=== PATIENT | male | born 1945 | race Caucasian/White ===

== ENCOUNTER 2017-12-03 18:22 | Inpatient (IN) | payer MEDICARE, MEDICAID ==
[~2017-12-03] VITALS: Ht 177.8 cm; Wt 74.5 kg
[2017-12-03] MEDS ORDERED: METHYLPREDNISOLONE SOD SUCC 125 MG/2 ML VIAL IV STA (18:37)
[2017-12-03] MEDS ORDERED: ALBUTEROL (0.083%) 2.5MG/3ML NEB HHN ONE (19:15)
[2017-12-03 19:16] LABS: BG BASE EXCESS -10.2 mmol/L (-2.0-2.0); BG BILEVEL POS AIRWAY PRESSURE 20/5; BG CARBOXYHEMOGLOBIN 0.8 % (0.5-1.5); BG DEOXYHEMOGLOBIN 0.2 % (0.0-5.0); BG FRACTION INSPIRED OXYGEN 100; BG HCO3 ACT 19.5 mmol/L (22.0-26.0); BG METHEMOGLOBIN 0.5 % (0.0-1.5); BG OXYGEN SATURATION 99.8 % (92.0-98.5); BG OXYHEMOGLOBIN 98.5 % (94.0-97.0); BG PH 7.129 (7.350-7.450); BG PO2 359.6 mmHg (75.0-100.0); BG SAMPLE SITE RIGHT RADIAL; BG TOTAL HEMOGLOBIN 13.1 g/dL (12.0-18.0); BG VENT MODE MASK - BIPAP; BG VENT RATE 20 set
[2017-12-03] MEDS ORDERED: NITROGLYCERIN 0.4MG TABLET SL SL ONE (19:30)
[2017-12-03] MEDS ORDERED: LORAZEPAM 1MG TABLET PO ONE (19:30)
[2017-12-03 19:39] LABS: BASOPHILS % 0.9 % (0.0-2.0); EOSINOPHILS % 4.7 % (0.0-5.0); HEMATOCRIT. 39.2 % (42.0-52.0); HEMOGLOBIN. 12.4 g/dL (14.0-18.0); LYMPHOCYTES % 50.3 % (20.0-50.0); MEAN CORPUSCULAR HEMOGLOBIN 28.2 pg (28.0-32.0); MEAN CORPUSCULAR VOLUME 88.9 fL (80.0-94.0); MONOCYTES % 7.6 % (2.0-8.0); NEUTROPHILS % 36.5 % (40.0-76.0); PLATELET 327 x1000/uL (130-400); RED BLOOD CELL COUNT 4.41 mill/uL (4.7-6.1); RED CELL DISTRIBUTION WIDTH 15.6 % (11.6-14.6)
[2017-12-03] MEDS ORDERED: FUROSEMIDE 40MG/4ML VIAL IVP ONE (19:45)
[2017-12-03] MEDS ORDERED: NITROGLYCERIN 0.1MG/HR PATCH TOP ONE (19:45)
[2017-12-03 19:46] LABS: CHLORIDE 104 mEq/L (98-107)
[2017-12-03 19:47] LABS: INR 1.1; PROTHROMBIN TIME 10.9 sec (9.1-11.1)
[2017-12-03] MEDS ORDERED: VANCOMYCIN 1 G PREMIX 200 ML IV ONE (20:15)
[2017-12-03] MEDS ORDERED: LEVOFLOXACIN 750MG PREMIX 150 ML IV ONE (20:15)
[2017-12-03] MEDS ORDERED: ASPIRIN 81MG TABLET PO ONE (20:45)
[2017-12-03 22:09] VITALS: BP 126/71
[2017-12-03 22:18] VITALS: BP 126/71
[2017-12-03] MEDS ORDERED: DOCU100T PO (23:28)
[2017-12-03] MEDS ORDERED: ACET-2178 PO (23:28)
[2017-12-03] MEDS ORDERED: METO-539 PO (23:28)
[2017-12-03] MEDS ORDERED: ONDA4TAB5 PO (23:28)
[2017-12-03] MEDS ORDERED: ATOR40TA70 MT (23:28)
[2017-12-03] MEDS ORDERED: INSU100I28 SQ (23:28)
[2017-12-03] MEDS ORDERED: ASPI-1159 PO (23:28)
[2017-12-03] MEDS ORDERED: FAMO-135 PO (23:28)
[2017-12-03] MEDS ORDERED: OXYC-100 PO (23:28)
[2017-12-04] VITALS (12 sets, daily range): BP systolic 91–114; BP diastolic 60–71
[2017-12-04] MEDS ORDERED: DEXTROSE 50% WATER 50ML SYRINGE IV PRN
[2017-12-04] MEDS ORDERED: HYDROCODONE/ACETAMINOPHEN 10/325MG TABLET PO PRN
[2017-12-04] MEDS ORDERED: ONDANSETRON HCL 4MG TABLET PO PRN
[2017-12-04] MEDS: BLOOD SUGAR DIAGNOSTIC STRIP TEST SCH ×4 (06:26→21:32)
[2017-12-04 07:03] LABS: HEMATOCRIT 32.6 % (42.0-52.0); HEMOGLOBIN 10.9 g/dL (14.0-18.0); MEAN CORPUSCULAR HEMOGLOBIN 28.2 pg (28.0-32.0); MEAN CORPUSCULAR VOLUME 84.6 fL (80.0-94.0); PLATELET 190 x1000/uL (130-400); RED BLOOD CELL COUNT 3.85 mill/uL (4.7-6.1); RED CELL DISTRIBUTION WIDTH 15.2 % (11.6-14.6)
[2017-12-04 07:41] LABS: CHLORIDE 106 mEq/L (98-107)
[2017-12-04] MEDS: INSULIN LISPRO 100 UNITS/ML SUBCUT SCH ×4 (08:20→21:00)
[2017-12-04] MEDS: FUROSEMIDE 40MG/4ML VIAL IVP SCH ×2 (08:20→21:42)
[2017-12-04] MEDS: SPIRONOLACTONE 25MG TABLET PO SCH (08:21)
[2017-12-04] MEDS: ENOXAPARIN 40MG/0.4ML SYR SUBCUT SCH (08:21)
[2017-12-04] MEDS: DOCUSATE SODIUM 100MG CAPSULE PO SCH ×2 (08:21→16:18)
[2017-12-04] MEDS: FAMOTIDINE 20MG TABLET PO SCH (08:21)
[2017-12-04] MEDS: ASPIRIN 81MG TABLET PO SCH (08:32)
[2017-12-04] MEDS: LISINOPRIL 5MG TABLET PO SCH ×2 (09:00→21:00)
[2017-12-04] MEDS: CARVEDILOL 3.125 MG TABLET PO SCH ×2 (09:00→21:00)
[2017-12-04] MEDS: IPRATROPIUM/ALBUTEROL 0.5-3(2.5)MG/3ML NEB HHN PRN ×3 (10:15→21:16)
[2017-12-04] MEDS: LEVOFLOXACIN 750MG PREMIX 150 ML IV SCH (10:25)
[2017-12-04] MEDS: LEVOTHYROXINE SODIUM 50MCG TABLET PO SCH (11:07)
[2017-12-04 12:02] LABS: BG BASE EXCESS -1.7 mmol/L (-2.0-2.0); BG CARBOXYHEMOGLOBIN 0.4 % (0.5-1.5); BG DEOXYHEMOGLOBIN 7.7 % (0.0-5.0); BG FRACTION INSPIRED OXYGEN 36; BG HCO3 ACT 21.1 mmol/L (22.0-26.0); BG METHEMOGLOBIN 0.3 % (0.0-1.5); BG OXYGEN SATURATION 92.2 % (92.0-98.5); BG OXYHEMOGLOBIN 91.6 % (94.0-97.0); BG PCO2 29.7 mmHg (35.0-45.0); BG PH 7.469 (7.350-7.450); BG PO2 64.1 mmHg (75.0-100.0); BG SAMPLE SITE RIGHT BRACHIAL; BG TOTAL HEMOGLOBIN 11.3 g/dL (12.0-18.0); BG VENT MODE NASAL CANNULA
[2017-12-04] MEDS: ATORVASTATIN CALCIUM 40MG TABLET PO SCH (21:31)
[2017-12-04] MEDS: INSULIN GLARGINE UD 100 UNITS/ML SYR SUBCUT SCH (21:34)
[2017-12-05] VITALS (12 sets, daily range): BP systolic 105–133; BP diastolic 55–90
[2017-12-05 06:34] LABS: BASOPHILS % 0.4 % (0.0-2.0); EOSINOPHILS % 0.5 % (0.0-5.0); HEMATOCRIT. 30.7 % (42.0-52.0); HEMOGLOBIN. 10.4 g/dL (14.0-18.0); LYMPHOCYTES % 14.8 % (20.0-50.0); MEAN CORPUSCULAR HEMOGLOBIN 28.9 pg (28.0-32.0); MEAN CORPUSCULAR VOLUME 85.2 fL (80.0-94.0); MEAN PLATELET VOLUME 8.6 fl (7.4-10.4); MONOCYTES % 8.7 % (2.0-8.0); NEUTROPHILS % 75.6 % (40.0-76.0); PLATELET 178 x1000/uL (130-400); RED CELL DISTRIBUTION WIDTH 15.2 % (11.6-14.6)
[2017-12-05] MEDS: BLOOD SUGAR DIAGNOSTIC STRIP TEST SCH ×4 (06:38→21:34)
[2017-12-05] MEDS: LEVOTHYROXINE SODIUM 50MCG TABLET PO SCH (06:38)
[2017-12-05 06:47] LABS: CHLORIDE 105 mEq/L (98-107)
[2017-12-05] MEDS: INSULIN LISPRO 100 UNITS/ML SUBCUT SCH ×4 (07:20→21:29)
[2017-12-05] MEDS: ENOXAPARIN 40MG/0.4ML SYR SUBCUT SCH (08:06)
[2017-12-05] MEDS: DOCUSATE SODIUM 100MG CAPSULE PO SCH ×2 (08:06→16:23)
[2017-12-05] MEDS: FUROSEMIDE 40MG/4ML VIAL IVP SCH ×2 (08:06→21:25)
[2017-12-05] MEDS: ASPIRIN 81MG TABLET PO SCH (08:06)
[2017-12-05] MEDS: SPIRONOLACTONE 25MG TABLET PO SCH (08:06)
[2017-12-05] MEDS: FAMOTIDINE 20MG TABLET PO SCH (08:07)
[2017-12-05] MEDS: CARVEDILOL 3.125 MG TABLET PO SCH ×2 (08:07→21:26)
[2017-12-05] MEDS: IPRATROPIUM/ALBUTEROL 0.5-3(2.5)MG/3ML NEB HHN PRN ×3 (08:30→15:54)
[2017-12-05] MEDS: LISINOPRIL 5MG TABLET PO SCH ×2 (09:44→21:28)
[2017-12-05] MEDS: POTASSIUM CHLORIDE 20MEQ TABLET SR PO SCH (10:23)
[2017-12-05] MEDS: LEVOFLOXACIN 750MG PREMIX 150 ML IV SCH (10:24)
[2017-12-05] MEDS: ATORVASTATIN CALCIUM 40MG TABLET PO SCH (21:25)
[2017-12-05] MEDS: INSULIN GLARGINE UD 100 UNITS/ML SYR SUBCUT SCH (21:29)
[2017-12-05] MEDS ORDERED: ZOLPIDEM TARTRATE 5MG TABLET PO PRN (23:00)
[2017-12-06] VITALS (10 sets, daily range): BP systolic 94–125; BP diastolic 66–92
[2017-12-06] MEDS: LEVOTHYROXINE SODIUM 50MCG TABLET PO SCH (06:23)
[2017-12-06] MEDS: BLOOD SUGAR DIAGNOSTIC STRIP TEST SCH ×3 (06:23→15:57)
[2017-12-06 06:59] LABS: BASOPHILS % 1.1 % (0.0-2.0); EOSINOPHILS % 4.3 % (0.0-5.0); HEMATOCRIT. 35.5 % (42.0-52.0); HEMOGLOBIN. 11.8 g/dL (14.0-18.0); LYMPHOCYTES % 15.6 % (20.0-50.0); MEAN CORPUSCULAR HEMOGLOBIN 28.2 pg (28.0-32.0); MEAN CORPUSCULAR VOLUME 85.2 fL (80.0-94.0); MEAN PLATELET VOLUME 8.6 fl (7.4-10.4); MONOCYTES % 7.9 % (2.0-8.0); NEUTROPHILS % 71.1 % (40.0-76.0); PLATELET 196 x1000/uL (130-400); RED BLOOD CELL COUNT 4.17 mill/uL (4.7-6.1); RED CELL DISTRIBUTION WIDTH 15.5 % (11.6-14.6)
[2017-12-06] MEDS: INSULIN LISPRO 100 UNITS/ML SUBCUT SCH ×2 (07:20→11:28)
[2017-12-06 07:51] LABS: CHLORIDE 103 mEq/L (98-107)
[2017-12-06] MEDS: POTASSIUM CHLORIDE 20MEQ TABLET SR PO SCH (08:26)
[2017-12-06] MEDS: ENOXAPARIN 40MG/0.4ML SYR SUBCUT SCH (08:26)
[2017-12-06] MEDS: ASPIRIN 81MG TABLET PO SCH (08:26)
[2017-12-06] MEDS: DOCUSATE SODIUM 100MG CAPSULE PO SCH ×2 (08:26→16:01)
[2017-12-06] MEDS: CARVEDILOL 3.125 MG TABLET PO SCH (08:26)
[2017-12-06] MEDS: FUROSEMIDE 40MG/4ML VIAL IVP SCH (08:26)
[2017-12-06] MEDS: FAMOTIDINE 20MG TABLET PO SCH (08:27)
[2017-12-06] MEDS: SPIRONOLACTONE 25MG TABLET PO SCH (08:27)
[2017-12-06] MEDS: LEVOFLOXACIN 750MG PREMIX 150 ML IV SCH (10:19)
[2017-12-06] MEDS: LISINOPRIL 5MG TABLET PO SCH (10:19)
[2017-12-06] MEDS ORDERED: CLOPIDOGREL 75MG TABLET PO SCH (10:30)
== END 2017-12-06 17:20 | DRG 291 ==
LOC: ER 18:22 → 3WST 20:15 → EDBEDREQTM 20:18 → EDBEDREQSVC 20:18 → EDBEDREQ 20:18 → ENRESERV 21:02
PROVIDERS: ADMIT Internal Medicine; ATTEND Internal Medicine
PROC: 5A09357 Assistance with Respiratory Ventilation, Less than 24 Consecutive Hours, Continuous Positive Airway Pressure (ICD-10-PCS; principal; 2017-12-03)
PROC: 5A09357 Assistance with Respiratory Ventilation, Less than 24 Consecutive Hours, Continuous Positive Airway Pressure (ICD-10-PCS; 2017-12-04)
PROC: 5A09357 Assistance with Respiratory Ventilation, Less than 24 Consecutive Hours, Continuous Positive Airway Pressure (ICD-10-PCS; 2017-12-05)
DX: I11.0 Hypertensive heart disease with heart failure (principal); J96.00 Acute respiratory failure, unspecified whether with hypoxia or hypercapnia; J18.9 Pneumonia, unspecified organism; E87.2 Acidosis; R65.10 Systemic inflammatory response syndrome (SIRS) of non-infectious origin without acute organ dysfunction; I50.23 Acute on chronic systolic (congestive) heart failure; I25.10 Atherosclerotic heart disease of native coronary artery without angina pectoris; B19.20 Unspecified viral hepatitis C without hepatic coma; D64.9 Anemia, unspecified; I25.5 Ischemic cardiomyopathy; E03.9 Hypothyroidism, unspecified; E11.9 Type 2 diabetes mellitus without complications; E78.5 Hyperlipidemia, unspecified; F17.200 Nicotine dependence, unspecified, uncomplicated; Z95.1 Presence of aortocoronary bypass graft; Z88.0 Allergy status to penicillin; I25.2 Old myocardial infarction
CPT/HCPCS: 36415; 36600; 71045; 80048; 80053; 82375; 82805; 82962; 83735; 83880; 84484; 85025; 85027; 85610; 87040; 93005; 93306; 94640; 94660; 96361; 96374; 96375; 97162; 99291; J1650; J1815; J1940; J1956; J2930; J3370; J7050; J7611; J7620

== ENCOUNTER 2018-05-04 11:46 | Inpatient (IN) | payer MEDICARE, MEDICAID ==
[~2018-05-04] VITALS: Ht 172.7 cm; Wt 81.2 kg
[~2018-05-04 11:46] MED LIST: ACET-2178 PO; ASPI-1159 PO; ATOR40TA70 MT; DOCU100T PO; FAMO-135 PO; INSU100I28 SQ; METO-539 PO; ONDA4TAB5 PO; OXYC-100 PO
[2018-05-04 13:08] LABS: HEMOGLOBIN. 12.5 g/dL (14.0-18.0); LYMPHOCYTES % 15.9 % (20.0-50.0); MEAN CORPUSCULAR HEMOGLOBIN 28.3 pg (28.0-32.0); MEAN CORPUSCULAR VOLUME 85.8 fL (80.0-94.0); MONOCYTES % 10.3 % (2.0-8.0); PLATELET 177 x1000/uL (130-400); RED BLOOD CELL COUNT 4.43 mill/uL (4.7-6.1)
[2018-05-04 13:09] LABS: BASOPHILS % 1.1 % (0.0-2.0); EOSINOPHILS % 3.7 % (0.0-5.0)
[2018-05-04 13:12] LABS: CHLORIDE 106 mEq/L (98-107)
[2018-05-04 13:19] LABS: ETHANOL BLOOD < 10 mg/dL
[2018-05-04 14:27] LABS: *BARBITURATES SCREEN URINE NEGATIVE (NEGATIVE)
[2018-05-04 14:28] LABS: *AMPHETAMINES SCREEN URINE NEGATIVE (NEGATIVE); *BENZODIAZEPINES SCREEN URINE NEGATIVE (NEGATIVE); *COCAINE SCREEN URINE NEGATIVE (NEGATIVE); METHADONE URINE SCREEN NEGATIVE (NEGATIVE); OPIATES URINE SCREEN NEGATIVE (NEGATIVE)
[2018-05-04 14:29] LABS: CANNABINOID URINE SCREEN NEGATIVE (NEGATIVE); PHENCYCLIDINE URINE SCREEN NEGATIVE (NEGATIVE)
[2018-05-04] MEDS ORDERED: FUROSEMIDE 40MG/4ML VIAL IVP ONE (16:00)
[2018-05-04 18:45] VITALS: BP 123/96
[2018-05-04 18:50] VITALS: BP 123/96
[2018-05-04 19:54] VITALS: BP 127/88
[2018-05-04] MEDS ORDERED: DEXTROSE 50% WATER 50ML SYRINGE IV PRN (22:30)
[2018-05-04] MEDS ORDERED: METOPROLOL TARTRATE 25MG TABLET PO SCH (22:45)
[2018-05-04] MEDS ORDERED: IPRATROPIUM/ALBUTEROL 0.5-3(2.5)MG/3ML NEB HHN PRN (22:45)
[2018-05-04] MEDS ORDERED: ACETAMINOPHEN 325MG TABLET PO PRN (22:45)
[2018-05-04 23:52] VITALS: BP 122/68
[2018-05-05] MEDS: IPRATROPIUM/ALBUTEROL 0.5-3(2.5)MG/3ML NEB HHN SCH ×5 (00:35→21:57)
[2018-05-05 03:51] VITALS: BP 96/45
[2018-05-05 04:10] VITALS: BP 102/68
[2018-05-05] MEDS ORDERED: PNEUMOCOCCAL 23-VAL P-SAC VAC 0.5 ML IM ONE (06:00)
[2018-05-05] MEDS: BLOOD SUGAR DIAGNOSTIC STRIP TEST SCH ×4 (06:00→20:27)
[2018-05-05] MEDS ORDERED: INFLUENZA VIRUS VACCINE(AFLURIA) 0.5ML SYR IM ONE (06:00)
[2018-05-05 07:07] LABS: BASOPHILS % 1.1 % (0.0-2.0); EOSINOPHILS % 6.2 % (0.0-5.0); HEMATOCRIT. 35.1 % (42.0-52.0); HEMOGLOBIN. 11.5 g/dL (14.0-18.0); LYMPHOCYTES % 23.3 % (20.0-50.0); MEAN CORPUSCULAR VOLUME 85.7 fL (80.0-94.0); MEAN PLATELET VOLUME 8.8 fl (7.4-10.4); MONOCYTES % 11.5 % (2.0-8.0); NEUTROPHILS % 57.9 % (40.0-76.0); PLATELET 164 x1000/uL (130-400); RED CELL DISTRIBUTION WIDTH 14.7 % (11.6-14.6)
[2018-05-05 07:21] LABS: CHLORIDE 107 mEq/L (98-107)
[2018-05-05 07:33] LABS: LDL CHOLESTEROL 89 mg/dL (5-100)
[2018-05-05 07:34] LABS: CREATINE KINASE 60 IU/L (39-308); HDL CHOLESTEROL 27 mg/dL (40-59)
[2018-05-05 07:42] LABS: CREATINE KINASE MB FRACTION 3.2 ng/mL (0.5-3.6)
[2018-05-05 08:00] VITALS: BP 114/76
[2018-05-05] MEDS: INSULIN LISPRO 100 UNITS/ML SUBCUT SCH ×4 (08:10→20:36)
[2018-05-05] MEDS: POTASSIUM CHLORIDE 10MEQ TABLET SR PO SCH (08:31)
[2018-05-05] MEDS: LISINOPRIL 20MG TABLET PO SCH (08:31)
[2018-05-05] MEDS: ENOXAPARIN 40MG/0.4ML SYR SUBCUT SCH (08:33)
[2018-05-05] MEDS ORDERED: METOPROLOL TARTRATE 25MG TABLET PO SCH (09:00)
[2018-05-05] MEDS: FUROSEMIDE 40MG/4ML VIAL IVP SCH (09:29)
[2018-05-05] MEDS: METHYLPREDNISOLONE SOD SUCC 40 MG/ML VIAL IV SCH ×2 (09:31→18:13)
[2018-05-05 12:00] VITALS: BP 110/68
[2018-05-05] MEDS: ASPIRIN 81MG EC TABLET PO SCH (13:12)
[2018-05-05] MEDS: CARVEDILOL 3.125 MG TABLET PO SCH ×2 (13:13→20:28)
[2018-05-05 16:00] VITALS: BP 106/68
[2018-05-05 19:27] LABS: CREATINE KINASE MB FRACTION 2.4 ng/mL (0.5-3.6)
[2018-05-05 20:00] VITALS: BP 110/84
[2018-05-05] MEDS: ATORVASTATIN CALCIUM 20MG TABLET PO SCH (20:35)
[2018-05-06] VITALS: BP 108/80
[2018-05-06 00:48] LABS: CREATINE KINASE MB FRACTION 1.8 ng/mL (0.5-3.6)
[2018-05-06] MEDS: IPRATROPIUM/ALBUTEROL 0.5-3(2.5)MG/3ML NEB HHN SCH ×6 (01:14→21:14)
[2018-05-06] MEDS: METHYLPREDNISOLONE SOD SUCC 40 MG/ML VIAL IV SCH ×3 (01:49→17:38)
[2018-05-06 04:00] VITALS: BP 118/78
[2018-05-06] MEDS: BLOOD SUGAR DIAGNOSTIC STRIP TEST SCH ×4 (06:52→21:37)
[2018-05-06 06:56] LABS: HEMATOCRIT. 34.2 % (42.0-52.0); HEMOGLOBIN. 11.4 g/dL (14.0-18.0); MEAN CORPUSCULAR HEMOGLOBIN 28.4 pg (28.0-32.0); MEAN CORPUSCULAR VOLUME 85.4 fL (80.0-94.0); MEAN PLATELET VOLUME 8.9 fl (7.4-10.4); PLATELET 155 x1000/uL (130-400); RED BLOOD CELL COUNT 4.01 mill/uL (4.7-6.1); RED CELL DISTRIBUTION WIDTH 14.6 % (11.6-14.6)
[2018-05-06 07:03] LABS: CHLORIDE 105 mEq/L (98-107)
[2018-05-06 08:00] VITALS: BP 109/68
[2018-05-06] MEDS: LISINOPRIL 20MG TABLET PO SCH (09:00)
[2018-05-06] MEDS: CARVEDILOL 3.125 MG TABLET PO SCH ×2 (09:00→21:00)
[2018-05-06] MEDS: POTASSIUM CHLORIDE 10MEQ TABLET SR PO SCH (09:38)
[2018-05-06] MEDS: ASPIRIN 81MG EC TABLET PO SCH (09:38)
[2018-05-06] MEDS: FUROSEMIDE 40MG/4ML VIAL IVP SCH (09:38)
[2018-05-06] MEDS: ENOXAPARIN 40MG/0.4ML SYR SUBCUT SCH (09:39)
[2018-05-06] MEDS: INSULIN LISPRO 100 UNITS/ML SUBCUT SCH ×4 (09:40→21:00)
[2018-05-06 12:00] VITALS: BP 98/66
[2018-05-06 14:02] LABS: PLATELET ESTIMATE NORMAL
[2018-05-06 16:00] VITALS: BP 104/57
[2018-05-06 20:34] VITALS: BP 107/64
[2018-05-06] MEDS: ATORVASTATIN CALCIUM 20MG TABLET PO SCH (22:16)
[2018-05-07] VITALS: BP 109/64
[2018-05-07] MEDS: IPRATROPIUM/ALBUTEROL 0.5-3(2.5)MG/3ML NEB HHN SCH ×5 (00:41→14:43)
[2018-05-07] MEDS: METHYLPREDNISOLONE SOD SUCC 40 MG/ML VIAL IV SCH (01:27)
[2018-05-07 04:10] VITALS: BP 106/62
[2018-05-07] MEDS: BLOOD SUGAR DIAGNOSTIC STRIP TEST SCH ×3 (06:35→17:24)
[2018-05-07] MEDS: INSULIN LISPRO 100 UNITS/ML SUBCUT SCH ×3 (06:40→17:55)
[2018-05-07 07:04] LABS: HEMATOCRIT. 34.8 % (42.0-52.0); HEMOGLOBIN. 11.5 g/dL (14.0-18.0); MEAN CORPUSCULAR HEMOGLOBIN 28.1 pg (28.0-32.0); MEAN CORPUSCULAR VOLUME 85.4 fL (80.0-94.0); PLATELET 168 x1000/uL (130-400); RED BLOOD CELL COUNT 4.07 mill/uL (4.7-6.1); RED CELL DISTRIBUTION WIDTH 14.7 % (11.6-14.6)
[2018-05-07 07:40] LABS: CHLORIDE 104 mEq/L (98-107)
[2018-05-07 08:00] VITALS: BP 108/69
[2018-05-07] MEDS ORDERED: LACTULOSE 20G/30ML UDC PO NR (08:25)
[2018-05-07] MEDS ORDERED: REGADENOSON 0.4 MG/5 ML IV ONE ×2 (08:30→12:13)
[2018-05-07] MEDS: ENOXAPARIN 40MG/0.4ML SYR SUBCUT SCH (08:42)
[2018-05-07] MEDS: FUROSEMIDE 40MG/4ML VIAL IVP SCH (08:42)
[2018-05-07] MEDS: ASPIRIN 81MG EC TABLET PO SCH (09:00)
[2018-05-07] MEDS: CARVEDILOL 3.125 MG TABLET PO SCH (09:00)
[2018-05-07] MEDS: LISINOPRIL 20MG TABLET PO SCH (09:00)
[2018-05-07 12:04] LABS: PLATELET ESTIMATE NORMAL
[2018-05-07 13:17] VITALS: BP 104/62
[2018-05-07 16:00] VITALS: BP 99/45
[2018-05-07 16:58] VITALS: BP 99/45
== END 2018-05-07 18:43 | DRG 292 ==
LOC: ER 11:46 → ENRESERV 14:29 → 7WST 16:44 → EDBEDREQTM 16:52 → EDBEDREQ 16:52
PROVIDERS: ADMIT Internal Medicine Geriatric Medicine; ATTEND Internal Medicine Geriatric Medicine
DX: I11.0 Hypertensive heart disease with heart failure (principal); E46 Unspecified protein-calorie malnutrition; R07.89 Other chest pain; E11.9 Type 2 diabetes mellitus without complications; R74.8 Abnormal levels of other serum enzymes; I50.43 Acute on chronic combined systolic (congestive) and diastolic (congestive) heart failure; D64.9 Anemia, unspecified; E78.5 Hyperlipidemia, unspecified; F17.210 Nicotine dependence, cigarettes, uncomplicated; I25.10 Atherosclerotic heart disease of native coronary artery without angina pectoris; I25.5 Ischemic cardiomyopathy; I08.1 Rheumatic disorders of both mitral and tricuspid valves; Z60.2 Problems related to living alone; I27.20 Pulmonary hypertension, unspecified; K59.00 Constipation, unspecified; Z82.49 Family history of ischemic heart disease and other diseases of the circulatory system; Z91.14 Patient's other noncompliance with medication regimen; Z95.1 Presence of aortocoronary bypass graft; Z68.27 Body mass index [BMI] 27.0-27.9, adult; Z88.0 Allergy status to penicillin
CPT/HCPCS: 36415; 71045; 78452; 80048; 80061; 80305; 82550; 82553; 82962; 83036; 83735; 83880; 84443; 84484; 90686; 90732; 93005; 93017; 93306; 93970; 94640; 99285; A9500; G0482; J1650; J1815; J1940; J2785; J2920; J7620

== ENCOUNTER 2019-09-03 10:18 | Inpatient (IN) | payer MEDICARE, MEDICAID ==
[~2019-09-03] VITALS: Ht 177.8 cm; Wt 87.5 kg
[~2019-09-03 10:18] MED LIST changes: -ACET-2178 PO; -ASPI-1159 PO; +ASPI-1497 PO; +TOPUD PO
[2019-09-03 11:14] LABS: BASOPHILS % 0.7 % (0.0-2.0); EOSINOPHILS % 0.3 % (0.0-5.0); HEMATOCRIT. 39.6 % (42.0-52.0); HEMOGLOBIN. 13.5 g/dL (14.0-18.0); LYMPHOCYTES % 7.5 % (20.0-50.0); MEAN CORPUSCULAR HEMOGLOBIN 29.9 pg (28.0-32.0); MEAN CORPUSCULAR VOLUME 87.6 fL (80.0-94.0); MEAN PLATELET VOLUME 8.2 fl (7.4-10.4); MONOCYTES % 8.6 % (2.0-8.0); NEUTROPHILS % 82.9 % (40.0-76.0); PLATELET 192 x1000/uL (130-400); RED BLOOD CELL COUNT 4.52 mill/uL (4.7-6.1); RED CELL DISTRIBUTION WIDTH 15.3 % (11.6-14.6)
[2019-09-03 11:25] LABS: CHLORIDE 104 mEq/L (98-107)
[2019-09-03] MEDS ORDERED: ASPIRIN 325MG TABLET PO SCH (12:00)
[2019-09-03] MEDS ORDERED: ONDANSETRON HCL 4MG/2ML INJ IV PRN (16:45)
[2019-09-03] MEDS ORDERED: TRAZODONE HCL 50MG TABLET PO PRN (16:45)
[2019-09-03] MEDS: FUROSEMIDE 40MG/4ML VIAL IV SCH (17:48)
[2019-09-03] MEDS: ACETAMINOPHEN 325MG TABLET PO PRN (19:35)
[2019-09-03] MEDS ORDERED: TRAMADOL 50MG TABLET PO PRN (19:45)
[2019-09-03 20:00] VITALS: BP_SYST 87; BP_SYST 97; BP_DIAS 62
[2019-09-03] MEDS: HEPARIN 5000 UNITS/ML VIAL SUBCUT SCH (22:03)
[2019-09-04] VITALS: BP 101/70
[2019-09-04 04:00] VITALS: BP 126/88
[2019-09-04 06:48] LABS: CHLORIDE 105 mEq/L (98-107)
[2019-09-04 06:54] LABS: BASOPHILS % 1.1 % (0.0-2.0); EOSINOPHILS % 2.6 % (0.0-5.0); HEMATOCRIT. 38.7 % (42.0-52.0); LYMPHOCYTES % 15.8 % (20.0-50.0); MEAN CORPUSCULAR HEMOGLOBIN 29.2 pg (28.0-32.0); MEAN CORPUSCULAR VOLUME 87.1 fL (80.0-94.0); MEAN PLATELET VOLUME 8.4 fl (7.4-10.4); MONOCYTES % 10.7 % (2.0-8.0); NEUTROPHILS % 69.8 % (40.0-76.0); PLATELET 155 x1000/uL (130-400); RED BLOOD CELL COUNT 4.44 mill/uL (4.7-6.1); RED CELL DISTRIBUTION WIDTH 15.4 % (11.6-14.6)
[2019-09-04 08:00] VITALS: BP 116/75
[2019-09-04] MEDS: FUROSEMIDE 40MG/4ML VIAL IV SCH ×2 (09:18→17:19)
[2019-09-04] MEDS: ACETAMINOPHEN 325MG TABLET PO PRN (09:30)
[2019-09-04] MEDS: HEPARIN 5000 UNITS/ML VIAL SUBCUT SCH (10:03)
[2019-09-04 12:00] VITALS: BP 122/76
[2019-09-04] MEDS ORDERED: IPRATROPIUM/ALBUTEROL 0.5-3(2.5)MG/3ML NEB HHN PRN (13:15)
[2019-09-04] MEDS: ASPIRIN 81MG TABLET PO SCH (14:22)
[2019-09-04 16:00] VITALS: BP 111/83
[2019-09-04 16:33] LABS: *AMPHETAMINES SCREEN URINE NEGATIVE (NEGATIVE); *BARBITURATES SCREEN URINE NEGATIVE (NEGATIVE); *BENZODIAZEPINES SCREEN URINE NEGATIVE (NEGATIVE); *COCAINE SCREEN URINE NEGATIVE (NEGATIVE)
[2019-09-04 16:34] LABS: CANNABINOID URINE SCREEN NEGATIVE (NEGATIVE); METHADONE URINE SCREEN NEGATIVE (NEGATIVE); OPIATES URINE SCREEN NEGATIVE (NEGATIVE); PHENCYCLIDINE URINE SCREEN NEGATIVE (NEGATIVE)
[2019-09-04 17:13] LABS: HEPATITIS B SURFACE ANTIGEN NEGATIVE
[2019-09-04] MEDS: DILTIAZEM HCL 30MG TABLET PO SCH ×2 (17:19→21:00)
[2019-09-04 17:52] LABS: HEPATITIS A AB IGM NEGATIVE (NEGATIVE)
[2019-09-04 20:00] VITALS: BP 115/66
[2019-09-04] MEDS: ATORVASTATIN CALCIUM 40MG TABLET PO SCH (20:59)
[2019-09-04] MEDS: CARVEDILOL 3.125 MG TABLET PO SCH (20:59)
[2019-09-04] MEDS: IPRATROPIUM/ALBUTEROL 0.5-3(2.5)MG/3ML NEB HHN SCH (21:17)
[2019-09-05] VITALS: BP 126/72
[2019-09-05] MEDS: HEPARIN 5000 UNITS/ML VIAL SUBCUT SCH ×3 (00:20→22:07)
[2019-09-05] MEDS: IPRATROPIUM/ALBUTEROL 0.5-3(2.5)MG/3ML NEB HHN SCH ×4 (01:21→20:40)
[2019-09-05 04:00] VITALS: BP 118/66
[2019-09-05 05:28] LABS: CHLORIDE 102 mEq/L (98-107)
[2019-09-05] MEDS: DILTIAZEM HCL 30MG TABLET PO SCH (06:18)
[2019-09-05 06:57] LABS: EOSINOPHILS % 4.7 % (0.0-5.0); HEMATOCRIT. 36.5 % (42.0-52.0); HEMOGLOBIN. 12.3 g/dL (14.0-18.0); LYMPHOCYTES % 13.9 % (20.0-50.0); MEAN CORPUSCULAR HEMOGLOBIN 28.9 pg (28.0-32.0); MEAN CORPUSCULAR VOLUME 86.2 fL (80.0-94.0); MEAN PLATELET VOLUME 9.5 fl (7.4-10.4); MONOCYTES % 10.2 % (2.0-8.0); NEUTROPHILS % 70.2 % (40.0-76.0); PLATELET 135 x1000/uL (130-400); RED BLOOD CELL COUNT 4.24 mill/uL (4.7-6.1); RED CELL DISTRIBUTION WIDTH 15.3 % (11.6-14.6)
[2019-09-05 08:00] VITALS: BP 132/78
[2019-09-05] MEDS: LOSARTAN POTASSIUM 25 MG TABLET PO SCH (09:00)
[2019-09-05] MEDS: CARVEDILOL 3.125 MG TABLET PO SCH ×2 (09:00→22:07)
[2019-09-05] MEDS: FUROSEMIDE 40MG/4ML VIAL IV SCH ×2 (10:07→17:38)
[2019-09-05] MEDS: ASPIRIN 81MG TABLET PO SCH (10:08)
[2019-09-05] MEDS: POTASSIUM CHLORIDE 20MEQ TABLET SR PO SCH (10:11)
[2019-09-05 12:00] VITALS: BP 135/82
[2019-09-05] MEDS ORDERED: POTASSIUM CHLORIDE 20MEQ TABLET SR PO NR (12:15)
[2019-09-05] MEDS ORDERED: FUROSEMIDE 40MG/4ML VIAL IVP NR (13:45)
[2019-09-05 16:00] VITALS: BP 124/78
[2019-09-05] MEDS: ATORVASTATIN CALCIUM 40MG TABLET PO SCH (22:07)
[2019-09-06] VITALS: BP 111/51
[2019-09-06] MEDS: IPRATROPIUM/ALBUTEROL 0.5-3(2.5)MG/3ML NEB HHN SCH ×5 (00:43→20:50)
[2019-09-06 04:00] VITALS: BP 120/67
[2019-09-06 08:00] VITALS: BP 133/78
[2019-09-06 08:16] LABS: BASOPHILS % 1.1 % (0.0-2.0); EOSINOPHILS % 4.5 % (0.0-5.0); HEMATOCRIT. 35.6 % (42.0-52.0); HEMOGLOBIN. 11.9 g/dL (14.0-18.0); LYMPHOCYTES % 14.4 % (20.0-50.0); MEAN CORPUSCULAR HEMOGLOBIN 28.8 pg (28.0-32.0); MEAN CORPUSCULAR VOLUME 86.1 fL (80.0-94.0); MEAN PLATELET VOLUME 8.9 fl (7.4-10.4); MONOCYTES % 11.3 % (2.0-8.0); NEUTROPHILS % 68.7 % (40.0-76.0); PLATELET 144 x1000/uL (130-400); RED BLOOD CELL COUNT 4.13 mill/uL (4.7-6.1); RED CELL DISTRIBUTION WIDTH 15.1 % (11.6-14.6)
[2019-09-06 08:36] LABS: CHLORIDE 101 mEq/L (98-107)
[2019-09-06] MEDS ORDERED: POTASSIUM CHLORIDE 20MEQ TABLET SR PO NR (09:00)
[2019-09-06] MEDS: HEPARIN 5000 UNITS/ML VIAL SUBCUT SCH ×2 (09:45→21:50)
[2019-09-06] MEDS: FUROSEMIDE 40MG/4ML VIAL IV SCH ×2 (09:45→16:11)
[2019-09-06] MEDS: CARVEDILOL 3.125 MG TABLET PO SCH ×2 (09:46→21:00)
[2019-09-06] MEDS: ASPIRIN 81MG TABLET PO SCH (09:46)
[2019-09-06] MEDS: LOSARTAN POTASSIUM 25 MG TABLET PO SCH (09:46)
[2019-09-06] MEDS: POTASSIUM CHLORIDE 20MEQ TABLET SR PO SCH (09:46)
[2019-09-06 12:00] VITALS: BP 110/69
[2019-09-06 16:00] VITALS: BP 109/67
[2019-09-06 20:00] VITALS: BP_SYST 102; BP_SYST 143; BP_DIAS 53; BP_DIAS 75
[2019-09-06] MEDS: ATORVASTATIN CALCIUM 40MG TABLET PO SCH (21:50)
[2019-09-07] VITALS: BP 103/70
[2019-09-07 04:00] VITALS: BP 100/65
[2019-09-07 07:03] LABS: BASOPHILS % 1.2 % (0.0-2.0); EOSINOPHILS % 5.5 % (0.0-5.0); HEMOGLOBIN. 11.9 g/dL (14.0-18.0); LYMPHOCYTES % 16.2 % (20.0-50.0); MEAN CORPUSCULAR HEMOGLOBIN 28.8 pg (28.0-32.0); MEAN CORPUSCULAR VOLUME 87.3 fL (80.0-94.0); MEAN PLATELET VOLUME 8.8 fl (7.4-10.4); MONOCYTES % 12.7 % (2.0-8.0); NEUTROPHILS % 64.4 % (40.0-76.0); PLATELET 137 x1000/uL (130-400); RED BLOOD CELL COUNT 4.12 mill/uL (4.7-6.1); RED CELL DISTRIBUTION WIDTH 15.1 % (11.6-14.6)
[2019-09-07 07:54] VITALS: BP 109/80
[2019-09-07] MEDS: FUROSEMIDE 40MG/4ML VIAL IV SCH ×3 (08:01→21:01)
[2019-09-07] MEDS: HEPARIN 5000 UNITS/ML VIAL SUBCUT SCH ×2 (08:02→20:58)
[2019-09-07] MEDS: CARVEDILOL 3.125 MG TABLET PO SCH ×2 (08:02→20:57)
[2019-09-07] MEDS: ASPIRIN 81MG TABLET PO SCH (08:02)
[2019-09-07] MEDS: POTASSIUM CHLORIDE 20MEQ TABLET SR PO SCH ×2 (08:02→15:52)
[2019-09-07] MEDS: LOSARTAN POTASSIUM 25 MG TABLET PO SCH (08:03)
[2019-09-07 08:04] LABS: CHLORIDE 101 mEq/L (98-107)
[2019-09-07] MEDS: IPRATROPIUM/ALBUTEROL 0.5-3(2.5)MG/3ML NEB HHN SCH ×3 (09:00→21:00)
[2019-09-07 11:46] VITALS: BP 110/72
[2019-09-07] MEDS ORDERED: POTA20TA82 PO (12:16)
[2019-09-07] MEDS ORDERED: ASPI-1160 PO (12:16)
[2019-09-07] MEDS ORDERED: LIP40 PO (12:16)
[2019-09-07] MEDS ORDERED: FURO-151 MT (12:16)
[2019-09-07] MEDS ORDERED: COR3 PO (12:16)
[2019-09-07] MEDS ORDERED: LOSA25TA3 PO (12:16)
[2019-09-07] MEDS ORDERED: BUDESONIDE 0.5MG/2ML NEB HHN NR (13:15)
[2019-09-07] MEDS: METHYLPREDNISOLONE SOD SUCC 40 MG/ML VIAL IV SCH ×2 (13:23→21:01)
[2019-09-07 16:00] VITALS: BP 123/88
[2019-09-07 20:00] VITALS: BP 119/77
[2019-09-07] MEDS: ATORVASTATIN CALCIUM 40MG TABLET PO SCH (20:57)
[2019-09-08] VITALS: BP 110/68
[2019-09-08] MEDS: IPRATROPIUM/ALBUTEROL 0.5-3(2.5)MG/3ML NEB HHN SCH ×4 (02:22→20:24)
[2019-09-08 04:00] VITALS: BP 102/64
[2019-09-08] MEDS: FUROSEMIDE 40MG/4ML VIAL IV SCH (05:48)
[2019-09-08] MEDS: METHYLPREDNISOLONE SOD SUCC 40 MG/ML VIAL IV SCH ×3 (05:48→20:35)
[2019-09-08 06:37] LABS: BASOPHILS % 0.5 % (0.0-2.0); EOSINOPHILS % 0.1 % (0.0-5.0); HEMATOCRIT. 35.5 % (42.0-52.0); LYMPHOCYTES % 8.1 % (20.0-50.0); MEAN CORPUSCULAR HEMOGLOBIN 29.2 pg (28.0-32.0); MEAN CORPUSCULAR VOLUME 86.4 fL (80.0-94.0); MONOCYTES % 3.5 % (2.0-8.0); NEUTROPHILS % 87.8 % (40.0-76.0); RED BLOOD CELL COUNT 4.11 mill/uL (4.7-6.1); RED CELL DISTRIBUTION WIDTH 15.4 % (11.6-14.6)
[2019-09-08 06:47] LABS: CHLORIDE 99 mEq/L (98-107)
[2019-09-08 08:19] VITALS: BP 111/72
[2019-09-08] MEDS: LOSARTAN POTASSIUM 25 MG TABLET PO SCH (09:09)
[2019-09-08] MEDS: HEPARIN 5000 UNITS/ML VIAL SUBCUT SCH ×2 (09:09→20:36)
[2019-09-08] MEDS: CARVEDILOL 3.125 MG TABLET PO SCH ×2 (09:09→20:35)
[2019-09-08] MEDS: ASPIRIN 81MG TABLET PO SCH (09:10)
[2019-09-08] MEDS: POTASSIUM CHLORIDE 20MEQ TABLET SR PO SCH ×2 (09:10→16:46)
[2019-09-08 09:32] LABS: MEAN PLATELET VOLUME 9.3 fl (7.4-10.4); PLATELET 120 x1000/uL (130-400)
[2019-09-08 12:08] VITALS: BP 104/69
[2019-09-08 12:52] LABS: BG BASE EXCESS 7.1 mmol/L (-2.0-2.0); BG CARBOXYHEMOGLOBIN 0.6 % (0.5-1.5); BG DEOXYHEMOGLOBIN 6.5 % (0.0-5.0); BG FRACTION INSPIRED OXYGEN 21; BG HCO3 ACT 32.3 mmol/L (22.0-26.0); BG METHEMOGLOBIN 0.4 % (0.0-1.5); BG OXYGEN SATURATION 93.4 % (92.0-98.5); BG OXYHEMOGLOBIN 92.5 % (94.0-97.0); BG PCO2 47.9 mmHg (35.0-45.0); BG PH 7.447 (7.350-7.450); BG PO2 66.8 mmHg (75.0-100.0); BG SAMPLE SITE LEFT RADIAL; BG TOTAL HEMOGLOBIN 13.2 g/dL (12.0-18.0); BG VENT MODE ROOM AIR
[2019-09-08 16:00] VITALS: BP 108/78
[2019-09-08] MEDS: FUROSEMIDE 40MG TABLET PO SCH (16:46)
[2019-09-08 20:00] VITALS: BP 105/68
[2019-09-08] MEDS: ATORVASTATIN CALCIUM 40MG TABLET PO SCH (20:35)
[2019-09-09] VITALS: BP 112/69
[2019-09-09] MEDS: IPRATROPIUM/ALBUTEROL 0.5-3(2.5)MG/3ML NEB HHN SCH ×2 (01:46→10:31)
[2019-09-09 04:00] VITALS: BP 108/67
[2019-09-09] MEDS: METHYLPREDNISOLONE SOD SUCC 40 MG/ML VIAL IV SCH (06:03)
[2019-09-09 08:00] VITALS: BP 125/84
[2019-09-09] MEDS: ASPIRIN 81MG TABLET PO SCH (08:45)
[2019-09-09] MEDS: LOSARTAN POTASSIUM 25 MG TABLET PO SCH (08:45)
[2019-09-09] MEDS: HEPARIN 5000 UNITS/ML VIAL SUBCUT SCH (08:45)
[2019-09-09] MEDS: FUROSEMIDE 40MG TABLET PO SCH (08:45)
[2019-09-09] MEDS: CARVEDILOL 3.125 MG TABLET PO SCH (08:46)
[2019-09-09] MEDS: POTASSIUM CHLORIDE 20MEQ TABLET SR PO SCH (08:46)
[2019-09-09 11:44] VITALS: BP 109/71
[2019-09-09] MEDS ORDERED: DEXTROSE 50% WATER 50ML SYRINGE IV PRN (13:00)
[2019-09-09 15:23] VITALS: BP 113/70
[2019-09-09 16:00] VITALS: BP 113/70
[2019-09-09] MEDS ORDERED: BLOOD SUGAR DIAGNOSTIC STRIP TEST SCH (16:45)
[2019-09-09] MEDS ORDERED: PREDNISONE 20MG TABLET PO SCH (17:00)
[2019-09-09] MEDS ORDERED: INSULIN LISPRO 100 UNITS/ML SUBCUT SCH (17:15)
== END 2019-09-09 16:30 | disposition home health service (06) | DRG 291 ==
LOC: ER 10:18 → MICUSO 13:02 → 5WST 18:50
PROVIDERS: ADMIT Family Medicine Adult Medicine; ATTEND Family Medicine Adult Medicine
DX: I11.0 Hypertensive heart disease with heart failure (principal); J96.00 Acute respiratory failure, unspecified whether with hypoxia or hypercapnia; I48.92 Unspecified atrial flutter; J98.11 Atelectasis; J91.8 Pleural effusion in other conditions classified elsewhere; I50.23 Acute on chronic systolic (congestive) heart failure; E11.9 Type 2 diabetes mellitus without complications; E78.5 Hyperlipidemia, unspecified; I08.1 Rheumatic disorders of both mitral and tricuspid valves; I25.10 Atherosclerotic heart disease of native coronary artery without angina pectoris; I25.5 Ischemic cardiomyopathy; I27.21 Secondary pulmonary arterial hypertension; R07.89 Other chest pain; E87.6 Hypokalemia; K76.1 Chronic passive congestion of liver; Z87.891 Personal history of nicotine dependence; Z91.19 Patient's noncompliance with other medical treatment and regimen; Z95.1 Presence of aortocoronary bypass graft; Z79.4 Long term (current) use of insulin; Z79.899 Other long term (current) drug therapy; Z91.14 Patient's other noncompliance with medication regimen; Z88.0 Allergy status to penicillin
CPT/HCPCS: 36415; 36600; 71045; 80053; 80305; 82375; 82805; 83036; 83735; 83880; 84484; 85025; 86705; 86709; 86803; 87340; 93005; 93306; 94618; 97110; 97116; 97162; 97165; 99285; J1644; J1940; J2920

== ENCOUNTER 2019-10-24 19:23 | Inpatient (IN) | payer MEDICAID, MEDICARE, OTHER ==
[~2019-10-24] VITALS: Ht 177.8 cm; Wt 81.2 kg
[~2019-10-24 19:23] MED LIST changes: +ASPI-1160 PO; +COR3 PO; +FURO-151 MT; +LIP40 PO; +LOSA25TA3 PO; -METO-539 PO; +POTA20TA82 PO
[2019-10-24] MEDS ORDERED: MORPHINE SULFATE 4 MG/ML CPJ (NOT FOR IM USE) IV STA (19:44)
[2019-10-24] MEDS ORDERED: ASPIRIN 81MG TABLET PO ONE (19:45)
[2019-10-24] MEDS ORDERED: NITROGLYCERIN OINT 1GM/INCH UDPKT TD ONE (19:45)
[2019-10-24 22:56] LABS: HEMATOCRIT. 34.3 % (42.0-52.0); HEMOGLOBIN. 11.6 g/dL (14.0-18.0); LYMPHOCYTES % 14.2 % (20.0-50.0); MEAN CORPUSCULAR HEMOGLOBIN 28.7 pg (28.0-32.0); MEAN CORPUSCULAR VOLUME 84.8 fL (80.0-94.0); MEAN PLATELET VOLUME 8.1 fl (7.4-10.4); MONOCYTES % 7.9 % (2.0-8.0); NEUTROPHILS % 73.9 % (40.0-76.0); PLATELET 181 x1000/uL (130-400); RED BLOOD CELL COUNT 4.04 mill/uL (4.7-6.1); RED CELL DISTRIBUTION WIDTH 17.5 % (11.6-14.6)
[2019-10-24 23:01] LABS: CHLORIDE 108 mEq/L (98-107)
[2019-10-24 23:02] LABS: INR 1.1; PROTHROMBIN TIME 11.4 sec (9.6-11.0)
[2019-10-24] MEDS ORDERED: FUROSEMIDE 40MG/4ML VIAL IVP ONE (23:30)
[2019-10-25] MEDS ORDERED: DEXTROSE 50% WATER 50ML SYRINGE IV PRN (02:00)
[2019-10-25] MEDS ORDERED: MAGNESIUM HYDROXIDE 400MG/5ML 30ML UDC PO PRN (02:00)
[2019-10-25] MEDS ORDERED: MORPHINE SULFATE 2 MG/ML CPJ (NOT FOR IM USE) IV PRN (02:00)
[2019-10-25] MEDS ORDERED: ZOLPIDEM TARTRATE 5MG TABLET PO PRN (02:00)
[2019-10-25] MEDS ORDERED: ACETAMINOPHEN 325MG TABLET PO PRN ×2 (02:00)
[2019-10-25] MEDS ORDERED: DIPHENHYDRAMINE 50MG/ML VIAL IV PRN (02:00)
[2019-10-25] MEDS ORDERED: CLONIDINE 0.1MG TABLET PO PRN (02:00)
[2019-10-25] MEDS ORDERED: ONDANSETRON HCL 4MG/2ML INJ IV PRN (02:00)
[2019-10-25] MEDS ORDERED: FUROSEMIDE 40MG/4ML VIAL IVP SCH (02:00)
[2019-10-25] MEDS ORDERED: MAGNESIUM/ALUMINUM HYDROXIDE/SIMETHICONE 30ML UDC PO PRN (02:00)
[2019-10-25] MEDS: SODIUM CHLORIDE 0.9% INJ 3ML FLUSH IVF SCH ×3 (06:13→21:06)
[2019-10-25] MEDS: ENOXAPARIN 40MG/0.4ML SYR SUBCUT SCH (06:14)
[2019-10-25 08:30] VITALS: BP 118/86
[2019-10-25] MEDS: BLOOD SUGAR DIAGNOSTIC STRIP TEST SCH ×4 (09:07→21:25)
[2019-10-25] MEDS: CARVEDILOL 3.125 MG TABLET PO SCH ×2 (09:20→21:00)
[2019-10-25] MEDS: POTASSIUM CHLORIDE 20MEQ TABLET SR PO SCH (09:20)
[2019-10-25] MEDS: FUROSEMIDE 40MG/4ML VIAL IVP SCH ×2 (09:20→21:05)
[2019-10-25] MEDS: FAMOTIDINE 20MG TABLET PO SCH ×2 (09:20→21:05)
[2019-10-25] MEDS: LOSARTAN POTASSIUM 25 MG TABLET PO SCH (09:20)
[2019-10-25] MEDS: ASPIRIN 81MG EC TABLET PO SCH (09:20)
[2019-10-25] MEDS: INSULIN LISPRO 100 UNITS/ML SUBCUT SCH ×4 (09:21→21:25)
[2019-10-25 12:00] VITALS: BP 106/67
[2019-10-25 16:00] VITALS: BP 90/52
[2019-10-25 20:17] VITALS: BP 103/72
[2019-10-25] MEDS: ATORVASTATIN CALCIUM 40MG TABLET PO SCH (21:05)
[2019-10-26] VITALS: BP 119/82
[2019-10-26 04:00] VITALS: BP 105/65
[2019-10-26] MEDS: BLOOD SUGAR DIAGNOSTIC STRIP TEST SCH ×4 (06:26→21:23)
[2019-10-26] MEDS: SODIUM CHLORIDE 0.9% INJ 3ML FLUSH IVF SCH ×3 (06:26→21:23)
[2019-10-26] MEDS: INSULIN LISPRO 100 UNITS/ML SUBCUT SCH ×4 (06:29→21:23)
[2019-10-26 07:39] LABS: CHLORIDE 103 mEq/L (98-107)
[2019-10-26 07:55] VITALS: BP 93/63
[2019-10-26 07:57] LABS: BASOPHILS % 0.8 % (0.0-2.0); EOSINOPHILS % 4.8 % (0.0-5.0); HEMATOCRIT. 35.3 % (42.0-52.0); HEMOGLOBIN. 11.8 g/dL (14.0-18.0); LYMPHOCYTES % 20.1 % (20.0-50.0); MEAN CORPUSCULAR VOLUME 83.5 fL (80.0-94.0); MEAN PLATELET VOLUME 8.3 fl (7.4-10.4); MONOCYTES % 8.4 % (2.0-8.0); NEUTROPHILS % 65.9 % (40.0-76.0); PLATELET 175 x1000/uL (130-400); RED BLOOD CELL COUNT 4.23 mill/uL (4.7-6.1); RED CELL DISTRIBUTION WIDTH 17.7 % (11.6-14.6)
[2019-10-26] MEDS: FAMOTIDINE 20MG TABLET PO SCH ×2 (08:28→21:21)
[2019-10-26] MEDS: POTASSIUM CHLORIDE 20MEQ TABLET SR PO SCH (08:28)
[2019-10-26] MEDS: FUROSEMIDE 40MG/4ML VIAL IVP SCH ×2 (08:28→21:21)
[2019-10-26] MEDS: ENOXAPARIN 40MG/0.4ML SYR SUBCUT SCH (08:28)
[2019-10-26] MEDS: ASPIRIN 81MG EC TABLET PO SCH (08:28)
[2019-10-26] MEDS: CARVEDILOL 3.125 MG TABLET PO SCH ×2 (08:29→21:00)
[2019-10-26] MEDS: LOSARTAN POTASSIUM 25 MG TABLET PO SCH (08:29)
[2019-10-26 12:00] VITALS: BP 94/61
[2019-10-26 16:00] VITALS: BP 95/61
[2019-10-26] MEDS ORDERED: MAGNESIUM 1 G PREMIX 100 ML IV NR (18:00)
[2019-10-26 20:00] VITALS: BP 97/66
[2019-10-26] MEDS: ATORVASTATIN CALCIUM 40MG TABLET PO SCH (21:21)
[2019-10-27] VITALS: BP 98/62
[2019-10-27 04:00] VITALS: BP 94/63
[2019-10-27] MEDS: SODIUM CHLORIDE 0.9% INJ 3ML FLUSH IVF SCH ×2 (06:20→13:48)
[2019-10-27] MEDS: INSULIN LISPRO 100 UNITS/ML SUBCUT SCH ×3 (06:21→16:39)
[2019-10-27] MEDS: BLOOD SUGAR DIAGNOSTIC STRIP TEST SCH ×3 (06:21→16:39)
[2019-10-27 08:00] VITALS: BP 105/75
[2019-10-27] MEDS: FUROSEMIDE 40MG/4ML VIAL IVP SCH (08:40)
[2019-10-27] MEDS: CARVEDILOL 3.125 MG TABLET PO SCH (08:40)
[2019-10-27] MEDS: ENOXAPARIN 40MG/0.4ML SYR SUBCUT SCH (08:40)
[2019-10-27] MEDS: POTASSIUM CHLORIDE 20MEQ TABLET SR PO SCH (08:40)
[2019-10-27] MEDS: ASPIRIN 81MG EC TABLET PO SCH (08:40)
[2019-10-27] MEDS: LOSARTAN POTASSIUM 25 MG TABLET PO SCH (08:40)
[2019-10-27] MEDS: FAMOTIDINE 20MG TABLET PO SCH (09:32)
[2019-10-27 12:00] VITALS: BP 102/72
[2019-10-27 16:00] VITALS: BP 108/73
[2019-10-27 16:45] VITALS: BP 108/73
[2019-10-27] MEDS ORDERED: CARVEDILOL 6.25 MG TABLET PO SCH (21:00)
== END 2019-10-27 18:35 | disposition home health service (06) | DRG 293 ==
LOC: ER 19:23 → EDBEDREQTM 20:06 → 5WST 23:24 → EDBEDREQ 23:27 → EDBEDREQTM 23:27 → ENRESERV 10-25 07:32
PROVIDERS: ADMIT Internal Medicine; ATTEND Internal Medicine
DX: I11.0 Hypertensive heart disease with heart failure (principal); E11.65 Type 2 diabetes mellitus with hyperglycemia; E78.5 Hyperlipidemia, unspecified; F17.210 Nicotine dependence, cigarettes, uncomplicated; I08.1 Rheumatic disorders of both mitral and tricuspid valves; I25.10 Atherosclerotic heart disease of native coronary artery without angina pectoris; I27.20 Pulmonary hypertension, unspecified; I44.7 Left bundle-branch block, unspecified; I50.23 Acute on chronic systolic (congestive) heart failure; I42.8 Other cardiomyopathies; J44.9 Chronic obstructive pulmonary disease, unspecified; K21.9 Gastro-esophageal reflux disease without esophagitis; I25.5 Ischemic cardiomyopathy; Z79.4 Long term (current) use of insulin; I25.2 Old myocardial infarction; Z79.82 Long term (current) use of aspirin; Z79.899 Other long term (current) drug therapy; Z91.19 Patient's noncompliance with other medical treatment and regimen; Z95.1 Presence of aortocoronary bypass graft; Z88.0 Allergy status to penicillin
CPT/HCPCS: 36415; 71045; 80048; 80053; 82962; 83036; 83735; 83880; 84484; 85025; 93005; 99291; J1650; J1815; J1940; J2270; J3475

== ENCOUNTER 2020-01-02 09:27 | Inpatient (IN) | payer MEDICARE, MEDICAID ==
[~2020-01-02] VITALS: Ht 177.8 cm; Wt 89.4 kg
[~2020-01-02 09:27] MED LIST changes: -ASPI-1160 PO; -DOCU100T PO; -LIP40 PO; -ONDA4TAB5 PO; -OXYC-100 PO; -TOPUD PO
[2020-01-02] MEDS ORDERED: ASPIRIN 81MG TABLET PO ONE (10:00)
[2020-01-02] MEDS ORDERED: NITROGLYCERIN 0.4MG TABLET SL SL PRN (10:00)
[2020-01-02 10:18] LABS: BASOPHILS % 1.1 % (0.0-2.0); EOSINOPHILS % 2.2 % (0.0-5.0); HEMATOCRIT. 39.6 % (42.0-52.0); HEMOGLOBIN. 12.9 g/dL (14.0-18.0); LYMPHOCYTES % 15.1 % (20.0-50.0); MEAN CORPUSCULAR HEMOGLOBIN 28.7 pg (28.0-32.0); MEAN CORPUSCULAR VOLUME 87.8 fL (80.0-94.0); MONOCYTES % 8.9 % (2.0-8.0); NEUTROPHILS % 72.7 % (40.0-76.0); PLATELET 204 x1000/uL (130-400); RED BLOOD CELL COUNT 4.51 mill/uL (4.7-6.1); RED CELL DISTRIBUTION WIDTH 16.3 % (11.6-14.6)
[2020-01-02 10:26] LABS: CHLORIDE 106 mEq/L (98-107)
[2020-01-02 10:28] LABS: INR 1.1; PROTHROMBIN TIME 11.4 sec (9.6-11.0)
[2020-01-02] MEDS ORDERED: FUROSEMIDE 40MG/4ML VIAL IVP ONE (11:15)
[2020-01-02] MEDS ORDERED: ACETAMINOPHEN 325MG TABLET PO PRN ×2 (13:00)
[2020-01-02] MEDS ORDERED: ACETAMINOPHEN 650MG/20.3ML UDC GT PRN (13:00)
[2020-01-02] MEDS ORDERED: ONDANSETRON HCL 4MG/2ML INJ IV PRN (13:00)
[2020-01-02] MEDS ORDERED: HYDROCODONE/APAP 7.5/325MG 1 TAB TABLET PO PRN (13:00)
[2020-01-02] MEDS ORDERED: DEXTROSE 50% WATER 50ML SYRINGE IV PRN (13:15)
[2020-01-02] MEDS ORDERED: ENOXAPARIN 40MG/0.4ML SYR SUBCUT SCH (13:30)
[2020-01-02] MEDS ORDERED: ASPIRIN 81MG EC TABLET PO SCH (14:00)
[2020-01-02] MEDS: INSULIN LISPRO 100 UNITS/ML SUBCUT SCH ×2 (14:06→22:17)
[2020-01-02 14:33] LABS: CREATINE KINASE MB FRACTION 2.8 ng/mL (0.5-3.6)
[2020-01-02 17:15] VITALS: BP 137/80
[2020-01-02] MEDS: POTASSIUM CHLORIDE 20MEQ TABLET SR PO SCH (17:47)
[2020-01-02] MEDS: BLOOD SUGAR DIAGNOSTIC STRIP TEST SCH ×2 (17:58→21:49)
[2020-01-02] MEDS: NITROGLYCERIN OINT 1GM/INCH UDPKT TD SCH ×2 (17:59→21:51)
[2020-01-02] MEDS ORDERED: PNEUMOCOCCAL 23-VAL P-SAC VAC 0.5 ML IM ONE (19:30)
[2020-01-02 20:00] VITALS: BP 120/80
[2020-01-02] MEDS ORDERED: CARVEDILOL 3.125 MG TABLET PO SCH (21:00)
[2020-01-02] MEDS: FUROSEMIDE 100MG/10ML VIAL IVP SCH (21:48)
[2020-01-02] MEDS: ATORVASTATIN CALCIUM 20MG TABLET PO SCH (21:49)
[2020-01-03] VITALS (7 sets, daily range): BP systolic 96–129; BP diastolic 67–86
[2020-01-03] LABS: CREATINE KINASE MB FRACTION 2.6 ng/mL (0.5-3.6)
[2020-01-03] MEDS ORDERED: MAGNESIUM 2 G PREMIX 50 ML IV NR
[2020-01-03 05:39] LABS: *BARBITURATES SCREEN URINE NEGATIVE (NEGATIVE)
[2020-01-03 05:40] LABS: *AMPHETAMINES SCREEN URINE NEGATIVE (NEGATIVE); *BENZODIAZEPINES SCREEN URINE NEGATIVE (NEGATIVE); *COCAINE SCREEN URINE NEGATIVE (NEGATIVE); METHADONE URINE SCREEN NEGATIVE (NEGATIVE); OPIATES URINE SCREEN NEGATIVE (NEGATIVE); PHENCYCLIDINE URINE SCREEN NEGATIVE (NEGATIVE)
[2020-01-03 05:41] LABS: CANNABINOID URINE SCREEN NEGATIVE (NEGATIVE)
[2020-01-03] MEDS: NITROGLYCERIN OINT 1GM/INCH UDPKT TD SCH ×3 (06:40→22:58)
[2020-01-03] MEDS: BLOOD SUGAR DIAGNOSTIC STRIP TEST SCH ×4 (06:40→21:01)
[2020-01-03] MEDS: INSULIN LISPRO 100 UNITS/ML SUBCUT SCH ×4 (06:48→21:40)
[2020-01-03 07:05] LABS: EOSINOPHILS % 4.3 % (0.0-5.0); HEMATOCRIT. 35.6 % (42.0-52.0); HEMOGLOBIN. 12.2 g/dL (14.0-18.0); MEAN CORPUSCULAR HEMOGLOBIN 29.8 pg (28.0-32.0); MEAN CORPUSCULAR VOLUME 86.6 fL (80.0-94.0); MEAN PLATELET VOLUME 8.4 fl (7.4-10.4); NEUTROPHILS % 65.7 % (40.0-76.0); PLATELET 176 x1000/uL (130-400); RED BLOOD CELL COUNT 4.11 mill/uL (4.7-6.1); RED CELL DISTRIBUTION WIDTH 15.7 % (11.6-14.6)
[2020-01-03 07:27] LABS: CHLORIDE 104 mEq/L (98-107)
[2020-01-03 07:32] LABS: LDL CHOLESTEROL 92 mg/dL (5-100)
[2020-01-03 07:33] LABS: HDL CHOLESTEROL 27 mg/dL (40-59)
[2020-01-03] MEDS ORDERED: INFLUENZA VACCINE 05/PF 0.5 ML VIAL IM ONE (08:00)
[2020-01-03] MEDS ORDERED: POTASSIUM CHLORIDE 20MEQ/PACKET PO NR (08:15)
[2020-01-03] MEDS ORDERED: CARVEDILOL 3.125 MG TABLET PO SCH (09:00)
[2020-01-03] MEDS: MAGNESIUM OXIDE 400MG TABLET PO SCH (09:50)
[2020-01-03] MEDS: ASPIRIN 81MG EC TABLET PO SCH (09:50)
[2020-01-03] MEDS: POTASSIUM CHLORIDE 20MEQ TABLET SR PO SCH ×2 (09:50→17:17)
[2020-01-03] MEDS: LOSARTAN POTASSIUM 25 MG TABLET PO SCH (09:51)
[2020-01-03] MEDS: ENOXAPARIN 30MG/0.3ML SYR SUBCUT SCH ×2 (09:51→21:00)
[2020-01-03] MEDS: FUROSEMIDE 100MG/10ML VIAL IVP SCH ×2 (09:51→21:00)
[2020-01-03] MEDS: ATORVASTATIN CALCIUM 20MG TABLET PO SCH (21:00)
[2020-01-03] MEDS: CARVEDILOL 6.25 MG TABLET PO SCH (21:30)
[2020-01-04] VITALS (7 sets, daily range): BP systolic 94–119; BP diastolic 64–78
[2020-01-04] MEDS: NITROGLYCERIN OINT 1GM/INCH UDPKT TD SCH ×3 (06:00→22:29)
[2020-01-04] MEDS: BLOOD SUGAR DIAGNOSTIC STRIP TEST SCH ×4 (06:23→21:00)
[2020-01-04] MEDS: INSULIN LISPRO 100 UNITS/ML SUBCUT SCH ×4 (06:45→23:27)
[2020-01-04 07:25] LABS: BASOPHILS % 1.2 % (0.0-2.0); EOSINOPHILS % 4.6 % (0.0-5.0); HEMATOCRIT. 35.5 % (42.0-52.0); HEMOGLOBIN. 11.8 g/dL (14.0-18.0); MEAN CORPUSCULAR HEMOGLOBIN 28.9 pg (28.0-32.0); MEAN CORPUSCULAR VOLUME 86.6 fL (80.0-94.0); MEAN PLATELET VOLUME 8.9 fl (7.4-10.4); MONOCYTES % 11.3 % (2.0-8.0); NEUTROPHILS % 64.9 % (40.0-76.0); PLATELET 163 x1000/uL (130-400); RED CELL DISTRIBUTION WIDTH 15.2 % (11.6-14.6)
[2020-01-04] MEDS: FUROSEMIDE 100MG/10ML VIAL IVP SCH ×2 (08:46→22:27)
[2020-01-04] MEDS: ENOXAPARIN 30MG/0.3ML SYR SUBCUT SCH ×2 (08:46→22:29)
[2020-01-04] MEDS: POTASSIUM CHLORIDE 20MEQ TABLET SR PO SCH ×2 (08:47→17:43)
[2020-01-04] MEDS: CARVEDILOL 6.25 MG TABLET PO SCH ×2 (08:47→22:28)
[2020-01-04] MEDS: LOSARTAN POTASSIUM 25 MG TABLET PO SCH (08:47)
[2020-01-04] MEDS: ASPIRIN 81MG EC TABLET PO SCH (08:47)
[2020-01-04] MEDS: MAGNESIUM OXIDE 400MG TABLET PO SCH (08:47)
[2020-01-04] MEDS: ATORVASTATIN CALCIUM 20MG TABLET PO SCH (22:29)
[2020-01-05] VITALS: BP 109/71
[2020-01-05 04:00] VITALS: BP 93/69
[2020-01-05] MEDS: NITROGLYCERIN OINT 1GM/INCH UDPKT TD SCH ×2 (05:59→14:00)
[2020-01-05] MEDS: BLOOD SUGAR DIAGNOSTIC STRIP TEST SCH ×4 (06:48→20:39)
[2020-01-05] MEDS: INSULIN LISPRO 100 UNITS/ML SUBCUT SCH ×4 (07:11→21:11)
[2020-01-05 08:00] VITALS: BP 109/72
[2020-01-05] MEDS: LOSARTAN POTASSIUM 25 MG TABLET PO SCH (08:44)
[2020-01-05] MEDS: CARVEDILOL 6.25 MG TABLET PO SCH ×2 (08:50→20:25)
[2020-01-05] MEDS: FUROSEMIDE 100MG/10ML VIAL IVP SCH ×2 (08:56→20:25)
[2020-01-05] MEDS: MAGNESIUM OXIDE 400MG TABLET PO SCH (08:57)
[2020-01-05] MEDS: ENOXAPARIN 30MG/0.3ML SYR SUBCUT SCH ×2 (08:57→20:24)
[2020-01-05] MEDS: POTASSIUM CHLORIDE 20MEQ TABLET SR PO SCH ×2 (08:57→17:48)
[2020-01-05] MEDS: ASPIRIN 81MG EC TABLET PO SCH (08:57)
[2020-01-05 12:00] VITALS: BP 104/74
[2020-01-05 16:00] VITALS: BP 102/74
[2020-01-05 18:05] LABS: BASOPHILS % 1.2 % (0.0-2.0); EOSINOPHILS % 4.8 % (0.0-5.0); HEMATOCRIT. 39.1 % (42.0-52.0); LYMPHOCYTES % 18.5 % (20.0-50.0); MEAN CORPUSCULAR HEMOGLOBIN 29.1 pg (28.0-32.0); MEAN CORPUSCULAR VOLUME 87.6 fL (80.0-94.0); MONOCYTES % 12.6 % (2.0-8.0); NEUTROPHILS % 62.9 % (40.0-76.0); PLATELET 186 x1000/uL (130-400); RED BLOOD CELL COUNT 4.47 mill/uL (4.7-6.1); RED CELL DISTRIBUTION WIDTH 15.6 % (11.6-14.6)
[2020-01-05 18:06] LABS: CHLORIDE 103 mEq/L (98-107)
[2020-01-05 20:13] VITALS: BP 121/88
[2020-01-05] MEDS: ATORVASTATIN CALCIUM 20MG TABLET PO SCH (20:25)
[2020-01-06] VITALS: BP 100/70
[2020-01-06] MEDS: NITROGLYCERIN OINT 1GM/INCH UDPKT TD SCH ×3 (00:52→13:01)
[2020-01-06 04:00] VITALS: BP 115/79
[2020-01-06] MEDS: BLOOD SUGAR DIAGNOSTIC STRIP TEST SCH ×2 (05:39→11:18)
[2020-01-06] MEDS: INSULIN LISPRO 100 UNITS/ML SUBCUT SCH ×2 (06:26→13:01)
[2020-01-06 08:00] VITALS: BP 121/87
[2020-01-06] MEDS: ASPIRIN 81MG EC TABLET PO SCH (08:37)
[2020-01-06] MEDS: LOSARTAN POTASSIUM 25 MG TABLET PO SCH (08:37)
[2020-01-06] MEDS: MAGNESIUM OXIDE 400MG TABLET PO SCH (08:37)
[2020-01-06] MEDS: POTASSIUM CHLORIDE 20MEQ TABLET SR PO SCH (08:37)
[2020-01-06] MEDS: FUROSEMIDE 100MG/10ML VIAL IVP SCH (08:38)
[2020-01-06] MEDS: CARVEDILOL 6.25 MG TABLET PO SCH (08:38)
[2020-01-06] MEDS ORDERED: ENOXAPARIN 40MG/0.4ML SYR SUBCUT SCH (09:00)
[2020-01-06 12:05] VITALS: BP 104/73
[2020-01-06 13:24] LABS: EOSINOPHILS % 3.9 % (0.0-5.0); HEMATOCRIT. 38.6 % (42.0-52.0); HEMOGLOBIN. 13.1 g/dL (14.0-18.0); LYMPHOCYTES % 17.6 % (20.0-50.0); MEAN CORPUSCULAR HEMOGLOBIN 29.3 pg (28.0-32.0); MEAN CORPUSCULAR VOLUME 86.2 fL (80.0-94.0); MEAN PLATELET VOLUME 8.9 fl (7.4-10.4); MONOCYTES % 10.9 % (2.0-8.0); NEUTROPHILS % 66.6 % (40.0-76.0); PLATELET 169 x1000/uL (130-400); RED BLOOD CELL COUNT 4.48 mill/uL (4.7-6.1); RED CELL DISTRIBUTION WIDTH 15.6 % (11.6-14.6)
[2020-01-06 14:40] VITALS: BP 104/73
== END 2020-01-06 15:00 | disposition home health service (06) | DRG 291 ==
LOC: ER 09:27 → EDBEDREQ 11:11 → EDBEDREQTM 11:11 → 5WST 11:58 → EDBEDREQTM 12:04 → EDBEDREQ 12:04 → ENRESERV 15:23
PROVIDERS: ADMIT Family Medicine; ATTEND Family Medicine
DX: I11.0 Hypertensive heart disease with heart failure (principal); I50.31 Acute diastolic (congestive) heart failure; I42.9 Cardiomyopathy, unspecified; I25.10 Atherosclerotic heart disease of native coronary artery without angina pectoris; E11.9 Type 2 diabetes mellitus without complications; E78.5 Hyperlipidemia, unspecified; I36.1 Nonrheumatic tricuspid (valve) insufficiency; I27.20 Pulmonary hypertension, unspecified; D64.9 Anemia, unspecified; E87.6 Hypokalemia; I65.29 Occlusion and stenosis of unspecified carotid artery; I25.2 Old myocardial infarction; Z88.0 Allergy status to penicillin; Z79.4 Long term (current) use of insulin; Z79.82 Long term (current) use of aspirin; Z79.899 Other long term (current) drug therapy; Z91.14 Patient's other noncompliance with medication regimen; Z59.0 Homelessness; Z95.1 Presence of aortocoronary bypass graft; E87.5 Hyperkalemia; F17.200 Nicotine dependence, unspecified, uncomplicated
CPT/HCPCS: 36415; 71045; 80048; 80053; 80061; 80305; 82550; 82553; 82962; 83036; 83735; 83880; 84484; 85025; 90686; 93005; 93306; 99291; J1650; J1815; J1940; J3475

== ENCOUNTER 2020-03-16 10:00 | Inpatient (IN) | payer MEDICARE, MEDICAID ==
[~2020-03-16] VITALS: Ht 177.8 cm; Wt 73.9 kg
[2020-03-16] MEDS ORDERED: ASPIRIN 325MG EC TABLET PO ONE (10:45)
[2020-03-16 11:21] LABS: BASOPHILS % 2.5 % (0.0-2.0); EOSINOPHILS % 0.3 % (0.0-5.0); HEMATOCRIT. 40.2 % (42.0-52.0); HEMOGLOBIN. 13.2 g/dL (14.0-18.0); LYMPHOCYTES % 11.6 % (20.0-50.0); MEAN CORPUSCULAR HEMOGLOBIN 28.6 pg (28.0-32.0); MEAN PLATELET VOLUME 8.3 fl (7.4-10.4); MONOCYTES % 8.6 % (2.0-8.0); PLATELET 224 x1000/uL (130-400); RED BLOOD CELL COUNT 4.62 mill/uL (4.7-6.1); RED CELL DISTRIBUTION WIDTH 18.4 % (11.6-14.6)
[2020-03-16 11:28] LABS: CHLORIDE 105 mEq/L (98-107)
[2020-03-16] MEDS ORDERED: AZITHROMYCIN 500 MG TABLET PO ONE (12:00)
[2020-03-16] MEDS ORDERED: DEXAMETHASONE 10 MG/ML VIAL IV ONE (12:00)
[2020-03-16] MEDS ORDERED: ACETAMINOPHEN 325MG TABLET PO PRN (14:00)
[2020-03-16] MEDS ORDERED: TRAZODONE HCL 50MG TABLET PO PRN (14:00)
[2020-03-16] MEDS ORDERED: ONDANSETRON HCL 4MG/2ML INJ IV PRN (14:00)
[2020-03-16] MEDS ORDERED: DEXTROSE 50% WATER 50ML SYRINGE IV PRN (14:00)
[2020-03-16] MEDS: ENOXAPARIN 40MG/0.4ML SYR SUBCUT SCH (15:00)
[2020-03-16] MEDS: LEVOFLOXACIN 500MG PREMIX 100 ML IV SCH (15:32)
[2020-03-16 15:39] LABS: CLARITY URINE CLEAR (CLEAR); COLOR URINE DARK YELLOW (YELLOW); KETONES URINE TRACE (NEGATIVE); LEUKOCYTE ESTERASE URINE TRACE (NEGATIVE); NITRITE URINE NEGATIVE (NEGATIVE); OCCULT BLOOD URINE NEGATIVE (NEGATIVE); PH URINE 5.5 (4.5-8.0); PROTEIN URINE 2+ (NEGATIVE); SPECIFIC GRAVITY URINE 1.027 (1.005-1.030)
[2020-03-16 15:59] LABS: *BENZODIAZEPINES SCREEN URINE NEGATIVE (NEGATIVE); *COCAINE SCREEN URINE NEGATIVE (NEGATIVE); CANNABINOID URINE SCREEN NEGATIVE (NEGATIVE); METHADONE URINE SCREEN NEGATIVE (NEGATIVE); OPIATES URINE SCREEN NEGATIVE (NEGATIVE)
[2020-03-16 16:00] LABS: *AMPHETAMINES SCREEN URINE NEGATIVE (NEGATIVE); *BARBITURATES SCREEN URINE NEGATIVE (NEGATIVE); PHENCYCLIDINE URINE SCREEN NEGATIVE (NEGATIVE)
[2020-03-16] MEDS: BLOOD SUGAR DIAGNOSTIC STRIP TEST SCH ×2 (17:00→22:50)
[2020-03-16] MEDS: FUROSEMIDE 40MG/4ML VIAL IVP SCH (17:38)
[2020-03-16] MEDS: INSULIN LISPRO 100 UNITS/ML SUBCUT SCH (18:20)
[2020-03-16] MEDS ORDERED: CARVEDILOL 3.125 MG TABLET PO SCH (21:00)
[2020-03-16] MEDS: ATORVASTATIN CALCIUM 40MG TABLET PO SCH (22:49)
[2020-03-17] MEDS: INSULIN LISPRO 100 UNITS/ML SUBCUT SCH ×3 (00:02→14:01)
[2020-03-17 06:30] LABS: BASOPHILS % 0.5 % (0.0-2.0); HEMATOCRIT. 41.1 % (42.0-52.0); HEMOGLOBIN. 13.6 g/dL (14.0-18.0); LYMPHOCYTES % 12.2 % (20.0-50.0); MEAN CORPUSCULAR HEMOGLOBIN 28.5 pg (28.0-32.0); MEAN CORPUSCULAR VOLUME 86.4 fL (80.0-94.0); MEAN PLATELET VOLUME 8.5 fl (7.4-10.4); NEUTROPHILS % 80.3 % (40.0-76.0); PLATELET 204 x1000/uL (130-400); RED BLOOD CELL COUNT 4.76 mill/uL (4.7-6.1); RED CELL DISTRIBUTION WIDTH 18.3 % (11.6-14.6)
[2020-03-17 06:34] LABS: CHLORIDE 105 mEq/L (98-107)
[2020-03-17] MEDS: BLOOD SUGAR DIAGNOSTIC STRIP TEST SCH (07:26)
[2020-03-17] MEDS: FAMOTIDINE 20MG TABLET PO SCH (09:00)
[2020-03-17] MEDS: ASPIRIN 81MG EC TABLET PO SCH (10:15)
[2020-03-17] MEDS: LOSARTAN POTASSIUM 25 MG TABLET PO SCH (10:15)
[2020-03-18] VITALS (7 sets, daily range): BP systolic 98–110; BP diastolic 66–84
[2020-03-18] MEDS: CARVEDILOL 3.125 MG TABLET PO SCH ×3 (06:00→21:06)
[2020-03-18 07:15] LABS: BASOPHILS % 0.7 % (0.0-2.0); EOSINOPHILS % 0.1 % (0.0-5.0); HEMATOCRIT. 37.6 % (42.0-52.0); HEMOGLOBIN. 12.3 g/dL (14.0-18.0); LYMPHOCYTES % 12.6 % (20.0-50.0); MEAN CORPUSCULAR HEMOGLOBIN 28.4 pg (28.0-32.0); MEAN CORPUSCULAR VOLUME 86.7 fL (80.0-94.0); MEAN PLATELET VOLUME 8.5 fl (7.4-10.4); NEUTROPHILS % 77.6 % (40.0-76.0); PLATELET 182 x1000/uL (130-400); RED BLOOD CELL COUNT 4.33 mill/uL (4.7-6.1); RED CELL DISTRIBUTION WIDTH 18.2 % (11.6-14.6)
[2020-03-18] MEDS: BLOOD SUGAR DIAGNOSTIC STRIP TEST SCH ×4 (07:15→21:06)
[2020-03-18] MEDS: INSULIN LISPRO 100 UNITS/ML SUBCUT SCH ×4 (07:16→21:05)
[2020-03-18 07:25] LABS: CHLORIDE 106 mEq/L (98-107)
[2020-03-18] MEDS: FAMOTIDINE 20MG TABLET PO SCH (08:21)
[2020-03-18] MEDS: FUROSEMIDE 40MG/4ML VIAL IVP SCH (08:21)
[2020-03-18] MEDS: LOSARTAN POTASSIUM 25 MG TABLET PO SCH (08:21)
[2020-03-18] MEDS: ASPIRIN 81MG EC TABLET PO SCH (08:21)
[2020-03-18] MEDS ORDERED: LEVOFLOXACIN 500MG PREMIX 100 ML IV SCH (15:00)
[2020-03-18] MEDS: ENOXAPARIN 40MG/0.4ML SYR SUBCUT SCH ×2 (15:33→15:35)
[2020-03-18] MEDS: LEVOFLOXACIN 500MG PREMIX 100 ML IV SCH (15:34)
[2020-03-18] MEDS: ATORVASTATIN CALCIUM 40MG TABLET PO SCH (21:00)
[2020-03-19] VITALS (7 sets, daily range): BP systolic 95–166; BP diastolic 58–86
[2020-03-19] MEDS: BLOOD SUGAR DIAGNOSTIC STRIP TEST SCH ×4 (05:48→20:17)
[2020-03-19] MEDS: INSULIN LISPRO 100 UNITS/ML SUBCUT SCH ×4 (05:48→20:17)
[2020-03-19] MEDS: CARVEDILOL 3.125 MG TABLET PO SCH ×3 (05:49→21:17)
[2020-03-19] MEDS: FUROSEMIDE 40MG/4ML VIAL IVP SCH (08:15)
[2020-03-19] MEDS: LOSARTAN POTASSIUM 25 MG TABLET PO SCH (08:15)
[2020-03-19] MEDS: ENOXAPARIN 40MG/0.4ML SYR SUBCUT SCH (08:16)
[2020-03-19] MEDS: FAMOTIDINE 20MG TABLET PO SCH (08:16)
[2020-03-19] MEDS: ASPIRIN 81MG EC TABLET PO SCH (08:17)
[2020-03-19 10:28] LABS: BASOPHILS % 0.8 % (0.0-2.0); EOSINOPHILS % 1.8 % (0.0-5.0); HEMATOCRIT. 38.9 % (42.0-52.0); HEMOGLOBIN. 12.7 g/dL (14.0-18.0); LYMPHOCYTES % 11.8 % (20.0-50.0); MEAN CORPUSCULAR HEMOGLOBIN 28.3 pg (28.0-32.0); MEAN CORPUSCULAR VOLUME 86.5 fL (80.0-94.0); MEAN PLATELET VOLUME 8.8 fl (7.4-10.4); NEUTROPHILS % 75.6 % (40.0-76.0); PLATELET 188 x1000/uL (130-400); RED CELL DISTRIBUTION WIDTH 18.5 % (11.6-14.6)
[2020-03-19 10:46] LABS: CHLORIDE 107 mEq/L (98-107)
[2020-03-19] MEDS ORDERED: LEVO500T2 MT (13:09)
[2020-03-19] MEDS ORDERED: POTA20TA82 PO (13:34)
[2020-03-19] MEDS ORDERED: INSU100I28 SQ (13:34)
[2020-03-19] MEDS ORDERED: COR3 PO (13:34)
[2020-03-19] MEDS ORDERED: ATOR40TA70 MT (13:34)
[2020-03-19] MEDS ORDERED: FURO-151 MT (13:34)
[2020-03-19] MEDS ORDERED: FAMO-135 PO (13:34)
[2020-03-19] MEDS ORDERED: LOSA25TA3 PO (13:34)
[2020-03-19] MEDS ORDERED: ASPI-1497 PO (13:34)
[2020-03-19] MEDS: LEVOFLOXACIN 500MG TABLET PO SCH (14:32)
[2020-03-19] MEDS ORDERED: POTASSIUM CHLORIDE 20MEQ TABLET SR PO NR (17:52)
[2020-03-19] MEDS: ATORVASTATIN CALCIUM 40MG TABLET PO SCH (20:16)
[2020-03-20 04:00] VITALS: BP 95/63
[2020-03-20] MEDS: CARVEDILOL 3.125 MG TABLET PO SCH ×3 (06:00→21:24)
[2020-03-20] MEDS: BLOOD SUGAR DIAGNOSTIC STRIP TEST SCH ×4 (06:11→21:00)
[2020-03-20] MEDS: INSULIN LISPRO 100 UNITS/ML SUBCUT SCH ×4 (06:11→21:27)
[2020-03-20 06:30] LABS: BASOPHILS % 0.6 % (0.0-2.0); EOSINOPHILS % 1.9 % (0.0-5.0); HEMATOCRIT. 37.1 % (42.0-52.0); HEMOGLOBIN. 12.2 g/dL (14.0-18.0); LYMPHOCYTES % 13.4 % (20.0-50.0); MEAN CORPUSCULAR HEMOGLOBIN 28.3 pg (28.0-32.0); MEAN CORPUSCULAR VOLUME 85.9 fL (80.0-94.0); MEAN PLATELET VOLUME 8.1 fl (7.4-10.4); MONOCYTES % 10.2 % (2.0-8.0); NEUTROPHILS % 73.9 % (40.0-76.0); PLATELET 141 x1000/uL (130-400); RED BLOOD CELL COUNT 4.32 mill/uL (4.7-6.1); RED CELL DISTRIBUTION WIDTH 18.2 % (11.6-14.6)
[2020-03-20 06:35] LABS: CHLORIDE 106 mEq/L (98-107)
[2020-03-20 08:00] VITALS: BP 88/59
[2020-03-20] MEDS: ASPIRIN 81MG EC TABLET PO SCH (08:36)
[2020-03-20] MEDS: FUROSEMIDE 40MG/4ML VIAL IVP SCH (08:36)
[2020-03-20] MEDS: ENOXAPARIN 40MG/0.4ML SYR SUBCUT SCH (08:36)
[2020-03-20] MEDS: FAMOTIDINE 20MG TABLET PO SCH (08:36)
[2020-03-20 12:00] VITALS: BP 110/64
[2020-03-20] MEDS: LEVOFLOXACIN 500MG TABLET PO SCH (12:44)
[2020-03-20 16:00] VITALS: BP 102/60
[2020-03-20 20:00] VITALS: BP 133/89
[2020-03-20] MEDS: ATORVASTATIN CALCIUM 40MG TABLET PO SCH (21:24)
[2020-03-21] VITALS: BP 100/70
[2020-03-21 04:00] VITALS: BP 108/58
[2020-03-21] MEDS: CARVEDILOL 3.125 MG TABLET PO SCH ×2 (05:06→18:22)
[2020-03-21] MEDS: BLOOD SUGAR DIAGNOSTIC STRIP TEST SCH ×4 (06:23→20:39)
[2020-03-21] MEDS: INSULIN LISPRO 100 UNITS/ML SUBCUT SCH ×4 (06:38→21:00)
[2020-03-21 08:04] VITALS: BP 104/61
[2020-03-21] MEDS: FUROSEMIDE 40MG/4ML VIAL IVP SCH (10:29)
[2020-03-21] MEDS: ASPIRIN 81MG EC TABLET PO SCH (10:30)
[2020-03-21] MEDS: FAMOTIDINE 20MG TABLET PO SCH (10:30)
[2020-03-21] MEDS: ENOXAPARIN 40MG/0.4ML SYR SUBCUT SCH (10:30)
[2020-03-21] MEDS: LEVOFLOXACIN 500MG TABLET PO SCH (10:34)
[2020-03-21 10:54] VITALS: BP 100/75
[2020-03-21 12:28] LABS: BASOPHILS % 0.8 % (0.0-2.0); EOSINOPHILS % 2.2 % (0.0-5.0); HEMATOCRIT. 39.2 % (42.0-52.0); HEMOGLOBIN. 13.1 g/dL (14.0-18.0); LYMPHOCYTES % 11.6 % (20.0-50.0); MEAN CORPUSCULAR HEMOGLOBIN 28.6 pg (28.0-32.0); MEAN CORPUSCULAR VOLUME 85.7 fL (80.0-94.0); MEAN PLATELET VOLUME 8.7 fl (7.4-10.4); MONOCYTES % 9.9 % (2.0-8.0); NEUTROPHILS % 75.5 % (40.0-76.0); PLATELET 142 x1000/uL (130-400); RED BLOOD CELL COUNT 4.57 mill/uL (4.7-6.1); RED CELL DISTRIBUTION WIDTH 18.2 % (11.6-14.6)
[2020-03-21 12:41] LABS: CHLORIDE 103 mEq/L (98-107)
[2020-03-21] MEDS ORDERED: POTASSIUM CHLORIDE 20MEQ TABLET SR PO NR (13:07)
[2020-03-21] MEDS: LOSARTAN POTASSIUM 25 MG TABLET PO SCH (13:30)
[2020-03-21 16:04] VITALS: BP 110/62
[2020-03-21] MEDS: MAGNESIUM OXIDE 400MG TABLET PO SCH (18:22)
[2020-03-21 20:00] VITALS: BP 114/85
[2020-03-21] MEDS: ATORVASTATIN CALCIUM 40MG TABLET PO SCH (21:00)
[2020-03-21] MEDS ORDERED: INSULIN GLARGINE UD 100 UNITS/ML SYR SUBCUT SCH (22:00)
[2020-03-22] VITALS (7 sets, daily range): BP systolic 90–127; BP diastolic 47–90
[2020-03-22] MEDS: BLOOD SUGAR DIAGNOSTIC STRIP TEST SCH ×4 (06:02→21:41)
[2020-03-22] MEDS: INSULIN LISPRO 100 UNITS/ML SUBCUT SCH ×4 (06:16→21:42)
[2020-03-22 08:26] LABS: CHLORIDE 102 mEq/L (98-107)
[2020-03-22 08:29] LABS: BASOPHILS % 0.7 % (0.0-2.0); EOSINOPHILS % 2.3 % (0.0-5.0); HEMATOCRIT. 36.5 % (42.0-52.0); HEMOGLOBIN. 12.1 g/dL (14.0-18.0); LYMPHOCYTES % 13.5 % (20.0-50.0); MEAN CORPUSCULAR HEMOGLOBIN 28.5 pg (28.0-32.0); MEAN PLATELET VOLUME 8.9 fl (7.4-10.4); MONOCYTES % 14.5 % (2.0-8.0); PLATELET 123 x1000/uL (130-400); RED BLOOD CELL COUNT 4.25 mill/uL (4.7-6.1); RED CELL DISTRIBUTION WIDTH 18.1 % (11.6-14.6)
[2020-03-22] MEDS: FAMOTIDINE 20MG TABLET PO SCH (09:00)
[2020-03-22] MEDS: LOSARTAN POTASSIUM 25 MG TABLET PO SCH (09:00)
[2020-03-22] MEDS: CARVEDILOL 3.125 MG TABLET PO SCH ×2 (09:00→18:23)
[2020-03-22] MEDS ORDERED: POTASSIUM CHLORIDE 20MEQ TABLET SR PO NR (09:15)
[2020-03-22] MEDS: FUROSEMIDE 100MG/10ML VIAL IVP SCH ×2 (09:15→10:14)
[2020-03-22] MEDS: MAGNESIUM OXIDE 400MG TABLET PO SCH (10:15)
[2020-03-22] MEDS: ENOXAPARIN 40MG/0.4ML SYR SUBCUT SCH (10:15)
[2020-03-22] MEDS: ASPIRIN 81MG EC TABLET PO SCH (10:16)
[2020-03-22] MEDS: FUROSEMIDE 40MG TABLET PO SCH (18:23)
[2020-03-22] MEDS: ATORVASTATIN CALCIUM 40MG TABLET PO SCH (21:41)
[2020-03-22] MEDS ORDERED: INSULIN GLARGINE UD 100 UNITS/ML SYR SUBCUT SCH (22:00)
[2020-03-23] VITALS: BP 119/89
[2020-03-23 04:00] VITALS: BP 120/80
[2020-03-23] MEDS: BLOOD SUGAR DIAGNOSTIC STRIP TEST SCH ×2 (06:27→12:10)
[2020-03-23] MEDS: INSULIN LISPRO 100 UNITS/ML SUBCUT SCH ×2 (06:28→12:40)
[2020-03-23 07:44] LABS: BASOPHILS % 0.9 % (0.0-2.0); EOSINOPHILS % 2.9 % (0.0-5.0); HEMOGLOBIN. 12.1 g/dL (14.0-18.0); LYMPHOCYTES % 15.2 % (20.0-50.0); MEAN CORPUSCULAR HEMOGLOBIN 28.6 pg (28.0-32.0); MEAN PLATELET VOLUME 8.8 fl (7.4-10.4); MONOCYTES % 12.3 % (2.0-8.0); NEUTROPHILS % 68.7 % (40.0-76.0); PLATELET 118 x1000/uL (130-400); RED BLOOD CELL COUNT 4.23 mill/uL (4.7-6.1)
[2020-03-23 08:33] LABS: CHLORIDE 103 mEq/L (98-107)
[2020-03-23] MEDS: CARVEDILOL 3.125 MG TABLET PO SCH (09:00)
[2020-03-23] MEDS ORDERED: POTASSIUM CHLORIDE 20MEQ TABLET SR PO SCH (09:00)
[2020-03-23] MEDS: MAGNESIUM OXIDE 400MG TABLET PO SCH (10:30)
[2020-03-23] MEDS: LOSARTAN POTASSIUM 25 MG TABLET PO SCH (10:30)
[2020-03-23] MEDS: ENOXAPARIN 40MG/0.4ML SYR SUBCUT SCH (10:30)
[2020-03-23] MEDS: FAMOTIDINE 20MG TABLET PO SCH (10:30)
[2020-03-23] MEDS: FUROSEMIDE 40MG TABLET PO SCH (10:31)
[2020-03-23] MEDS: ASPIRIN 81MG EC TABLET PO SCH (10:31)
[2020-03-23] MEDS ORDERED: POTASSIUM CHLORIDE 20MEQ TABLET SR PO NR (11:15)
[2020-03-23 15:08] VITALS: BP 103/75
== END 2020-03-23 17:00 | disposition home health service (06) | DRG 177 ==
LOC: ER 10:00 → MICUSO 13:32 → EDBEDREQTM 13:43 → 8WST 03-18 00:35
PROVIDERS: ADMIT Internal Medicine; ATTEND Internal Medicine
DX: U07.1 COVID-19 (principal); I50.23 Acute on chronic systolic (congestive) heart failure; J12.89 Other viral pneumonia; I42.9 Cardiomyopathy, unspecified; E87.1 Hypo-osmolality and hyponatremia; I47.2 Ventricular tachycardia; J44.0 Chronic obstructive pulmonary disease with (acute) lower respiratory infection; I08.1 Rheumatic disorders of both mitral and tricuspid valves; D64.9 Anemia, unspecified; E87.6 Hypokalemia; E11.65 Type 2 diabetes mellitus with hyperglycemia; E78.5 Hyperlipidemia, unspecified; I25.10 Atherosclerotic heart disease of native coronary artery without angina pectoris; I11.0 Hypertensive heart disease with heart failure; I49.3 Ventricular premature depolarization; I27.20 Pulmonary hypertension, unspecified; Z59.0 Homelessness; Z87.891 Personal history of nicotine dependence; Z91.19 Patient's noncompliance with other medical treatment and regimen; Z95.1 Presence of aortocoronary bypass graft; Z88.0 Allergy status to penicillin; Z87.898 Personal history of other specified conditions; Z79.4 Long term (current) use of insulin; Z79.899 Other long term (current) drug therapy; Z91.14 Patient's other noncompliance with medication regimen; I25.2 Old myocardial infarction
CPT/HCPCS: 36415; 71045; 80048; 80053; 80305; 81003; 82728; 82962; 83036; 83735; 84145; 84484; 85025; 85379; 86140; 87635; 93005; 96365; 99285; C1893; J1100; J1650; J1815; J1940; J1956; J7040

== ENCOUNTER 2020-04-21 09:51 | Inpatient (IN) | payer MEDICARE, MEDICAID ==
[~2020-04-21] VITALS: Ht 177.8 cm; Wt 82.0 kg
[~2020-04-21 09:51] MED LIST changes: +LEVO500T2 MT
[2020-04-21 10:36] LABS: BASOPHILS % 0.5 % (0.0-2.0); EOSINOPHILS % 1.4 % (0.0-5.0); HEMATOCRIT. 41.6 % (42.0-52.0); HEMOGLOBIN. 13.6 g/dL (14.0-18.0); LYMPHOCYTES % 14.9 % (20.0-50.0); MEAN CORPUSCULAR HEMOGLOBIN 27.8 pg (28.0-32.0); MEAN CORPUSCULAR VOLUME 84.9 fL (80.0-94.0); NEUTROPHILS % 73.2 % (40.0-76.0); PLATELET 147 x1000/uL (130-400); RED BLOOD CELL COUNT 4.89 mill/uL (4.7-6.1); RED CELL DISTRIBUTION WIDTH 17.6 % (11.6-14.6)
[2020-04-21 10:41] LABS: CHLORIDE 101 mEq/L (98-107)
[2020-04-21] MEDS ORDERED: ASPIRIN 325MG EC TABLET PO ONE (11:45)
[2020-04-21] MEDS ORDERED: FUROSEMIDE 100MG/10ML VIAL IVP ONE (11:45)
[2020-04-21] MEDS ORDERED: DIPHENHYDRAMINE 50MG/ML VIAL IV PRN (15:30)
[2020-04-21] MEDS ORDERED: DEXTROSE 50% WATER 50ML SYRINGE IV PRN (15:30)
[2020-04-21] MEDS ORDERED: ACETAMINOPHEN 325MG TABLET PO PRN ×2 (15:30)
[2020-04-21] MEDS ORDERED: CLONIDINE 0.1MG TABLET PO PRN (15:30)
[2020-04-21] MEDS ORDERED: ONDANSETRON HCL 4MG/2ML INJ IV PRN (15:30)
[2020-04-21] MEDS ORDERED: MAGNESIUM/ALUMINUM HYDROXIDE/SIMETHICONE 30ML UDC PO PRN (15:30)
[2020-04-21] MEDS: ENOXAPARIN 40MG/0.4ML SYR SUBCUT SCH (16:53)
[2020-04-21] MEDS: FUROSEMIDE 40MG/4ML VIAL IVP SCH (16:53)
[2020-04-21] MEDS: BLOOD SUGAR DIAGNOSTIC STRIP TEST SCH ×2 (16:54→21:24)
[2020-04-21] MEDS: INSULIN LISPRO 100 UNITS/ML SUBCUT SCH ×2 (17:09→21:00)
[2020-04-21 17:29] VITALS: BP 131/83
[2020-04-21 17:33] VITALS: BP 113/83
[2020-04-21 20:00] VITALS: BP 122/76
[2020-04-21] MEDS ORDERED: ZOLPIDEM TARTRATE 5MG TABLET PO PRN (21:00)
[2020-04-21] MEDS: FAMOTIDINE 20MG TABLET PO SCH (21:24)
[2020-04-21] MEDS: ATORVASTATIN CALCIUM 40MG TABLET PO SCH (21:24)
[2020-04-21] MEDS: CARVEDILOL 3.125 MG TABLET PO SCH (21:24)
[2020-04-21] MEDS: SODIUM CHLORIDE 0.9% INJ 3ML FLUSH IVF SCH (21:25)
[2020-04-21] MEDS ORDERED: INSULIN GLARGINE UD 100 UNITS/ML SYR SUBCUT SCH (22:00)
[2020-04-22] VITALS: BP 101/71
[2020-04-22 04:00] VITALS: BP 100/65
[2020-04-22] MEDS: FUROSEMIDE 40MG/4ML VIAL IVP SCH ×2 (04:25→15:36)
[2020-04-22] MEDS: SODIUM CHLORIDE 0.9% INJ 3ML FLUSH IVF SCH ×3 (04:26→21:49)
[2020-04-22] MEDS: BLOOD SUGAR DIAGNOSTIC STRIP TEST SCH ×4 (06:57→21:53)
[2020-04-22 08:00] VITALS: BP 121/81
[2020-04-22] MEDS: ASPIRIN 81MG EC TABLET PO SCH (08:03)
[2020-04-22] MEDS: CARVEDILOL 3.125 MG TABLET PO SCH ×2 (08:03→21:00)
[2020-04-22] MEDS: FAMOTIDINE 20MG TABLET PO SCH ×2 (08:03→21:49)
[2020-04-22] MEDS: INSULIN LISPRO 100 UNITS/ML SUBCUT SCH ×4 (08:06→21:52)
[2020-04-22 08:20] LABS: CHLORIDE 101 mEq/L (98-107)
[2020-04-22 08:29] LABS: PHOSPHORUS 3.4 mg/dL (2.5-4.9)
[2020-04-22] MEDS ORDERED: POTASSIUM CHLORIDE 20MEQ TABLET SR PO NR ×4 (11:00→14:00)
[2020-04-22 12:00] VITALS: BP 106/71
[2020-04-22] MEDS ORDERED: MAGNESIUM 2 G PREMIX 50 ML IV NR (12:00)
[2020-04-22] MEDS: ENOXAPARIN 40MG/0.4ML SYR SUBCUT SCH (15:36)
[2020-04-22 16:00] VITALS: BP 102/78
[2020-04-22] MEDS: DEXAMETHASONE 10 MG/ML VIAL IV SCH (17:23)
[2020-04-22 20:00] VITALS: BP 107/76
[2020-04-22] MEDS: ATORVASTATIN CALCIUM 40MG TABLET PO SCH (21:49)
[2020-04-22] MEDS ORDERED: INSULIN GLARGINE UD 100 UNITS/ML SYR SUBCUT SCH (22:00)
[2020-04-23] VITALS: BP 103/74
[2020-04-23] MEDS: FUROSEMIDE 40MG/4ML VIAL IVP SCH ×2 (03:35→15:28)
[2020-04-23 04:00] VITALS: BP 106/75
[2020-04-23] MEDS: SODIUM CHLORIDE 0.9% INJ 3ML FLUSH IVF SCH ×3 (06:00→22:42)
[2020-04-23 06:58] LABS: CHLORIDE 99 mEq/L (98-107)
[2020-04-23] MEDS: BLOOD SUGAR DIAGNOSTIC STRIP TEST SCH ×4 (07:18→21:00)
[2020-04-23 08:00] VITALS: BP 110/71
[2020-04-23] MEDS: ASPIRIN 81MG EC TABLET PO SCH (08:11)
[2020-04-23] MEDS: FAMOTIDINE 20MG TABLET PO SCH ×2 (08:11→22:43)
[2020-04-23] MEDS: DEXAMETHASONE 10 MG/ML VIAL IV SCH (08:12)
[2020-04-23] MEDS: INSULIN LISPRO 100 UNITS/ML SUBCUT SCH ×4 (08:12→22:44)
[2020-04-23] MEDS: CARVEDILOL 3.125 MG TABLET PO SCH ×2 (08:13→22:42)
[2020-04-23 12:00] VITALS: BP 101/58
[2020-04-23] MEDS: ENOXAPARIN 40MG/0.4ML SYR SUBCUT SCH (15:28)
[2020-04-23 16:00] VITALS: BP 121/81
[2020-04-23] MEDS ORDERED: INSULIN GLARGINE UD 100 UNITS/ML SYR SUBCUT SCH (22:00)
[2020-04-23 22:10] VITALS: BP 120/85
[2020-04-23] MEDS: ATORVASTATIN CALCIUM 40MG TABLET PO SCH (22:42)
[2020-04-24] MEDS: BLOOD SUGAR DIAGNOSTIC STRIP TEST SCH ×4 (06:46→20:27)
[2020-04-24] MEDS: SODIUM CHLORIDE 0.9% INJ 3ML FLUSH IVF SCH ×2 (06:46→13:33)
[2020-04-24] MEDS: FUROSEMIDE 40MG/4ML VIAL IVP SCH (06:46)
[2020-04-24 08:00] VITALS: BP 106/74
[2020-04-24] MEDS: CARVEDILOL 3.125 MG TABLET PO SCH ×2 (08:30→21:00)
[2020-04-24] MEDS: FAMOTIDINE 20MG TABLET PO SCH ×2 (08:33→21:12)
[2020-04-24] MEDS: DEXAMETHASONE 10 MG/ML VIAL IV SCH (08:33)
[2020-04-24] MEDS: ASPIRIN 81MG EC TABLET PO SCH (08:33)
[2020-04-24] MEDS: INSULIN LISPRO 100 UNITS/ML SUBCUT SCH ×4 (08:37→21:14)
[2020-04-24 11:34] LABS: CHLORIDE 97 mEq/L (98-107)
[2020-04-24] MEDS ORDERED: POTASSIUM CHLORIDE 20MEQ TABLET SR PO SCH (15:15)
[2020-04-24] MEDS: ENOXAPARIN 40MG/0.4ML SYR SUBCUT SCH (16:11)
[2020-04-24] MEDS ORDERED: MAGNESIUM 2 G PREMIX 50 ML IV NR (17:00)
[2020-04-24] MEDS ORDERED: FUROSEMIDE 40MG TABLET PO SCH (17:15)
[2020-04-24 20:00] VITALS: BP 97/55
[2020-04-24] MEDS: ATORVASTATIN CALCIUM 40MG TABLET PO SCH (21:12)
[2020-04-24 21:41] VITALS: BP 97/55
[2020-04-24] MEDS ORDERED: INSULIN GLARGINE UD 100 UNITS/ML SYR SUBCUT SCH (22:00)
== END 2020-04-24 22:30 | DRG 291 ==
LOC: ER 09:58 → 7WST 11:41 → ENRESERV 13:49 → 6WST 04-23 16:01
PROVIDERS: ADMIT Internal Medicine; ATTEND Internal Medicine
DX: I11.0 Hypertensive heart disease with heart failure (principal); U07.1 COVID-19; I50.23 Acute on chronic systolic (congestive) heart failure; E11.9 Type 2 diabetes mellitus without complications; I25.10 Atherosclerotic heart disease of native coronary artery without angina pectoris; J44.9 Chronic obstructive pulmonary disease, unspecified; Z87.891 Personal history of nicotine dependence; Z91.14 Patient's other noncompliance with medication regimen; Z95.1 Presence of aortocoronary bypass graft; Z88.0 Allergy status to penicillin; Z79.2 Long term (current) use of antibiotics; Z79.82 Long term (current) use of aspirin; Z79.4 Long term (current) use of insulin; Z79.899 Other long term (current) drug therapy; I25.2 Old myocardial infarction
CPT/HCPCS: 36415; 71045; 80048; 80053; 82962; 83036; 83735; 83880; 84100; 84484; 85025; 93005; 93970; 99291; J1100; J1650; J1815; J1940; J3475; U0003